=== PATIENT | male | born 1945 | race Caucasian/White ===

== ENCOUNTER → 2020-04-03 10:44 | Outpatient (BNVA) | payer MEDICARE, SELFPAY | PROVIDERS: Family Provider Nurse Practitioner Family; PCP Registered Nurse; Visit Provider Internal Medicine Cardiovascular Disease | DX: I10 Essential (primary) hypertension (principal) | CPT/HCPCS: 80061 ==

== ENCOUNTER → 2020-10-04 08:45 | Outpatient (BNVA) | payer MEDICARE, SELFPAY | PROVIDERS: Family Provider Nurse Practitioner Family; PCP Registered Nurse; Visit Provider Internal Medicine Cardiovascular Disease | DX: I10 Essential (primary) hypertension (principal); E78.2 Mixed hyperlipidemia | CPT/HCPCS: 80061; 80076; 82550 ==

== ENCOUNTER → 2021-04-03 13:47 | Outpatient (BNVA) | payer MEDICARE, SELFPAY | PROVIDERS: Family Provider Nurse Practitioner Family; PCP Registered Nurse; Visit Provider Internal Medicine Cardiovascular Disease | DX: E78.2 Mixed hyperlipidemia (principal); I25.10 Atherosclerotic heart disease of native coronary artery without angina pectoris; I10 Essential (primary) hypertension | CPT/HCPCS: 80061; 80076 ==

== ENCOUNTER → 2021-06-08 08:09 | Outpatient (BNVA) | payer MEDICARE, SELFPAY | PROVIDERS: Family Provider Nurse Practitioner Family; PCP Registered Nurse; Visit Provider Internal Medicine Cardiovascular Disease | DX: E78.2 Mixed hyperlipidemia (principal) | CPT/HCPCS: 80061 ==

== ENCOUNTER → 2022-10-08 13:40 | Outpatient (BNVA) | payer MEDICARE, SELFPAY | PROVIDERS: Family Provider Nurse Practitioner Family; PCP Registered Nurse; Visit Provider Internal Medicine Cardiovascular Disease | DX: I25.10 Atherosclerotic heart disease of native coronary artery without angina pectoris (principal); E78.2 Mixed hyperlipidemia; I10 Essential (primary) hypertension; F17.200 Nicotine dependence, unspecified, uncomplicated | CPT/HCPCS: 99214 ==

== ENCOUNTER → 2022-10-11 08:30 | Outpatient (BNVA) | payer MEDICARE, SELFPAY | PROVIDERS: Family Provider Nurse Practitioner Family; PCP Registered Nurse; Visit Provider Internal Medicine Cardiovascular Disease | DX: E78.5 Hyperlipidemia, unspecified (principal) | CPT/HCPCS: 80061; 80076 ==

== ENCOUNTER → 2023-04-14 13:27 | Outpatient (BNVA) | payer MEDICARE, SELFPAY | PROVIDERS: Family Provider Nurse Practitioner Family; PCP Registered Nurse; Visit Provider Internal Medicine Cardiovascular Disease | DX: I25.10 Atherosclerotic heart disease of native coronary artery without angina pectoris (principal); I10 Essential (primary) hypertension; E78.2 Mixed hyperlipidemia; I95.1 Orthostatic hypotension; F17.200 Nicotine dependence, unspecified, uncomplicated | CPT/HCPCS: 99214 ==

== ENCOUNTER → 2023-10-23 13:32 | Outpatient (BNVA) | payer MEDICARE, SELFPAY | PROVIDERS: Family Provider Nurse Practitioner Family; PCP Registered Nurse; Visit Provider Internal Medicine Cardiovascular Disease | DX: E78.2 Mixed hyperlipidemia (principal); I10 Essential (primary) hypertension; I25.10 Atherosclerotic heart disease of native coronary artery without angina pectoris; I95.1 Orthostatic hypotension; F17.200 Nicotine dependence, unspecified, uncomplicated | CPT/HCPCS: 99214 ==

== ENCOUNTER → 2023-11-07 08:19 | Outpatient (BNVA) | payer MEDICARE, SELFPAY | PROVIDERS: Family Provider Nurse Practitioner Family; PCP Registered Nurse; Visit Provider Internal Medicine Cardiovascular Disease | DX: E78.5 Hyperlipidemia, unspecified (principal); I10 Essential (primary) hypertension; Z79.899 Other long term (current) drug therapy | CPT/HCPCS: 80061 ==

== ENCOUNTER → 2024-04-22 10:48 | Outpatient (BNVA) | payer MEDICARE, SELFPAY | PROVIDERS: Family Provider Nurse Practitioner Family; PCP Registered Nurse; Visit Provider Nurse Practitioner Family | DX: I10 Essential (primary) hypertension (principal); I25.10 Atherosclerotic heart disease of native coronary artery without angina pectoris; Z72.0 Tobacco use | CPT/HCPCS: 99214 ==

== ENCOUNTER → 2024-08-02 12:39 | Outpatient (BNVA) | payer MEDICARE, SELFPAY | PROVIDERS: Family Provider Nurse Practitioner Family; PCP Registered Nurse; Referring Provider Registered Nurse; Visit Provider Nurse Practitioner Family | DX: L72.0 Epidermal cyst (principal); L82.1 Other seborrheic keratosis; L73.8 Other specified follicular disorders; D17.22 Benign lipomatous neoplasm of skin and subcutaneous tissue of left arm; L81.4 Other melanin hyperpigmentation; D48.5 Neoplasm of uncertain behavior of skin | CPT/HCPCS: 11102; 99203 ==

== ENCOUNTER → 2024-08-18 07:57 | Outpatient (BNVA) | payer MEDICARE, SELFPAY | PROVIDERS: Family Provider Nurse Practitioner Family; PCP Registered Nurse; Visit Provider Dermatology | DX: C44.311 Basal cell carcinoma of skin of nose (principal) | CPT/HCPCS: 99213 ==

== ENCOUNTER → 2024-10-25 09:07 | Outpatient (BNVA) | payer MEDICARE, SELFPAY | PROVIDERS: Family Provider Nurse Practitioner Family; PCP Registered Nurse; Visit Provider Registered Nurse | DX: I10 Essential (primary) hypertension (principal) | CPT/HCPCS: 80053; 80061; 85025 ==

== ENCOUNTER → 2024-11-24 13:52 | Outpatient (BNVA) | payer MEDICARE, SELFPAY | PROVIDERS: Family Provider Nurse Practitioner Family; PCP Registered Nurse; Visit Provider Internal Medicine Cardiovascular Disease | DX: I25.10 Atherosclerotic heart disease of native coronary artery without angina pectoris (principal); E78.2 Mixed hyperlipidemia; I10 Essential (primary) hypertension; I95.1 Orthostatic hypotension; F17.200 Nicotine dependence, unspecified, uncomplicated | CPT/HCPCS: 99214 ==

== ENCOUNTER 2025-01-13 20:23 | Inpatient (IN) | payer MEDICARE, SELFPAY ==
[2025-01-13 20:28] VITALS: BP 136/81; PULSE 114; RESP 28; TEMP 36.7; O2SAT 94; BMI 21.1
--- NOTE | 2025-01-13 20:33 | XRR_ITS ---
PROCEDURE INFORMATION: Exam: XR Chest Exam date and time: 01/13/2025 8:48 PM Age: 79 years old Clinical indication: Shortness of breath TECHNIQUE: Imaging protocol: Radiologic exam of the chest. Views: 1 view. COMPARISON: No relevant prior studies available. FINDINGS: Lungs: Nonspecific prominence of the pulmonary interstitium. No lobar consolidation. Bibasilar atelectasis. Pleural spaces: Small bilateral pleural effusions. No pneumothorax. Heart/Mediastinum: Unremarkable. No cardiomegaly. Bones/joints: Unremarkable. XR/XR chest 1V portable [id number] IMPRESSION: As above.
[2025-01-13 20:35] VITALS: PULSE 110; RESP 26; O2SAT 93
--- NOTE | 2025-01-13 20:48 | ED_ITS ---
HPI - SOB/Dyspnea 2 General: Chief Complaint: Shortness of Breath/Dyspnea Stated Complaint: SOB Time Seen by Provider: 01/13/25 20:29 History of Present Illness: HPI Narrative: 79-year-old man with history of coronary artery disease, hypertension, hyperlipidemia and COPD who presents emergency room by ambulance with shortness of breath. He had been seen in clinic a couple of days ago and felt like he might have pneumonia. He was started on steroids and also started on oxygen. He is not normally on oxygen prior to this. EMS reports when they arrived he was very dyspneic. His O2 sats were in the low 90s on 2 L nasal cannula. He received Solu-Medrol and breathing treatments on the way here. Related Data Home Medications ?Medication ?Instructions ?Recorded ?Confirmed aspirin 81 mg tablet,delayed 81 mg PO DAILY 03/29/20 0 01/13/25 release nitroglycerin 0.4 mg sublingual 0.4 mg sublingual Q5M PRN 03/29/20 01/13/25 tablet (Nitrostat) Previous Rx's ?Medication ?Instructions ?Recorded lisinopril 40 mg tablet 40 mg PO DAILY #90 tabs 03/05 ezetimibe 10 mg tablet (Zetia) 10 mg PO DAILY #90 tabs 03/04/24 rosuvastatin 10 mg tablet 10 mg PO DAILY #90 tabs 02/11 01/03 clopidogrel 75 mg tablet 75 mg PO DAILY #90 tabs 02/03 albuterol sulfate 90 mcg/actuation 1 inh inhalation QI D PRN 08/25/24 aerosol inhaler bronchospasm 30 days #8.5 gr ams metoprolol tartrate 25 mg tablet 25 mg PO BID #180 tab s 09/14/24 fluticasone propionate 230 2 puff inhalation BID #12 g nova 01/13/25 mcg-salmeterol 21 mcg/actuation HFA inhaler (Advair HFA) oxygen #1 ea 01/13/25 Allergies Allergy/AdvReac Type Severity Reaction Status Date / Time rosuvastatin AdvReac Severe severe Verified 01/13/25 20:29 joint pain Review of Systems 2 Narrative: Constitutional symptoms: Negative except as documented in HPI. Skin symptoms: Negative except as documented in HPI. Eye symptoms: Negative except as documented in HPI. ENMT symptoms: Negative except as documented in HPI. Respiratory symptoms: Negative except as documented in HPI. Cardiovascular symptoms: Negative except as documented in HPI. Gastrointestinal symptoms: Negative except as documented in HPI. Genitourinary symptoms: Negative except as documented in HPI. Musculoskeletal symptoms: Negative except as documented in HPI. Neurologic symptoms: Negative except as documented in HPI. Psychiatric symptoms: Negative except as documented in HPI. Endocrine symptoms: Negative except as documented in HPI. PFSH ED 2 PFSH: Medical History (Updated 01/13/25 @ 23:58 by Sveta Obrien MD) COPD (chronic obstructive pulmonary disease) Arteriosclerotic heart disease (ASHD) Hypertension Hyperlipemia Surgical History Hx of inguinal hernia surgery Family History Father Cancer Denies family history of Diabetes CAD (coronary artery disease) Clotting disorder Dementia Hyperlipidemia Chronic kidney disease (CKD) Suicide Anesthesia complication Bleeding disorder Lung disease Hypertension Stroke Social History Smoking and tobacco/nicotine status: current some day tobacco/nicotine user Alcohol intake: never Substance/Drug Use: never Physical Exam 2 Narrative: EXAM NARRATIVE: General: Alert, moderate distress. Skin: Warm, dry. Head: Normocephalic, atraumatic. Neck: Supple, trachea midline. Eye: Extraocular movements are intact. Ears, nose, mouth and throat: Oral mucosa moist. Cardiovascular: Regular rate and rhythm, Normal peripheral perfusion. Respiratory: coarse, scattered wheeze, moderate increased wob. tachypnea, prolonged expiratory phase. breath sounds are equal, Symmetrical chest wall expansion. Gastrointestinal: Soft, Nontender, Non distended, Normal bowel sounds. Musculoskeletal: Normal ROM, no deformity. Neurological: Alert and oriented, and situation, No focal neurological deficit observed. Psychiatric: Cooperative, appropriate mood & affect. Course 2 Vital Signs: Vital signs: Vital Signs Temperature 98.1 F 01/13/25 20:28 Pulse Rate 103 H 01/13/25 23:39 Respiratory Rate 26 H 01/13/25 20:35 Blood Pressure 108/75 01/13/25 23:39 Pulse Oximetry 91 01/13/25 23:39 Oxygen Delivery Me thod Nasal Cannula 01/13/25 20:35 Oxygen Flow Rate 2 01/13/25 20:35 MDM - SOB/Dyspnea Medical Decision Making Differential diagnosis for patient with shortness of breath includes but is not limited to and based on the above HPI, review of systems and physical exam: Pneumonia. Bronchitis. Asthma or COPD with acute exacerbation. Acute coronary syndrome / [place]. Pulmonary embolism. Anxiety. Congestive heart failure. Viral infections including influenza and Covid-19. Atrial fibrillation. Anxiety. Pleural effusion. Pneumothorax. Orders placed to evaluate differential diagnosis based on the above differential, HPI and physical exam AB.4 with an O2 sat of 89% on 2 L nasal cannula. Patient does have hypoxemia. No CO2 retention. Chest x-ray:Nonspecific prominence of pulmonary interstitium. No lobar consolidations. Bibasilar atelectasis. This was reviewed and interpreted by myself the emergency room physician. I also reviewed the radiology report. Lab Review: Laboratory results were reviewed and interpreted by myself the emergency room physician. Mild leukocytosis. No anemia. No renal failure. Patient is positive for influenza. His D-dimer was positive so CTA was done. CTA of the chest with PE protocol: Patchy groundglass opacities in the lower lobes also in the right middle lobe. Emphysematous changes. This was reviewed and interpreted by myself the emergency room physician. I also reviewed the radiology report. I reviewed the patient's medical record. Reexamination: Patient continues to have quite a bit of wheeze and increased work of breathing. He is a bit tachypneic as well. Lungs are still very tight after multiple updrafts and Solu-Medrol. He had not required oxygen prior to this illness. No diagnosis of COPD until recently. This appears to be confirmed with his CT scan today. Consultation: I spoke with Dr. Giang who agrees to admission to the hospital. Assessment and plan: COPD with acute exacerbation Influenza A Hypoxemia ?Patient has received IV Solu-Medrol, 3 updrafts, and is requiring oxygen. -I discussed the patient with the hospitalist on-call who is admitting the patient. - Discussed findings and plan with patient. Answered any questions. - All laboratory values were reviewed and interpreted personally by myself, the ER physician - All imaging was reviewed and interpreted personally by myself, the ER physician. - Evaluation and treatment of this problem were appropriate in the emergency setting Lab Data 01/13/25 20:45 01/13/25 20:45 Labs/Radiology: Radiology Impressions Chest X-Ray 01/13/25 20:33 IMPRESSION: As above. Chest CTA 01/13/25 21:42 IMPRESSION: 1. No evidence of pulmonary embolism. 2. Patchy ground-glass opacities and areas of tree-in-bud nodularity in the lower lobes likely represent an atypical infectious/inflammatory process. Consider imaging follow-up after clinical treatment to document resolution. 3. Ground-glass and consolidative opacities in the right middle lobe may also represent infection. Attention on follow-up recommended. 4. Moderate emphysema. COMMENTS: The presence of pulmonary emphysema on CT is an independent risk factor for lung cancer. In the absence of a history or active diagnosis of lung cancer, it is recommended that this patient with emphysema be evaluated for enrollment in a low dose CT lung cancer screening program. Laboratory Results WBC 11.62 10^3/uL (3.29-11.43) H 01/13/25 20:45 RBC 5.20 10^6/uL (3.85-5.65) 01/13/25 20:45 Hgb 15.90 g/dL (11.27-16.99) 01/13/25 20:45 Hct 47.6 % (37-53) 01/13/25 20:45 MCV 91.5 fl (82-101) 01/13/25 20:45 MCH 30.6 pg (27-33) 01/13/25 20:45 MCHC 33.4 g/dL (30-55) 01/13/25 20:45 RDW 12.4 % (12.1-15.1) 01/13/25 20:45 Plt Count 141 10^3/cmm (157-399) L 01/13/25 20:45 MPV 10.1 fL (7.4-10.4) 01/13/25 20:45 Neut % (Auto) 81.6 % 01/13/25 20:45 Lymph % (Auto) 12.0 % 01/13/25 20:45 [facility] % (Auto) 5.9 % 01/13/25 20:45 Eos % (Auto) 0.1 % 01/13/25 20:45 Baso % (Auto) 0.1 % 01/13/25 20:45 Neut # (Auto) 9.49 10^3/uL (1.8-7.7) H 01/13/25 20:45 Lymph # (Auto) 1.4 10^3/uL (0.8-4.8) 01/13/25 20:45 [facility] # (Auto) 0.7 10^3/uL (0.2-0.9) 01/13/25 20:45 Eos # (Auto) 0.0 10^3/uL (0.0-0.8) 01/13/25 20:45 Baso # (Auto) 0.0 10^3/uL (0.0-0.1) 01/13/25 20:45 Nucleated RBC % (auto) 0 % 01/13/25 20:45 Nucleated RBCs # 0.0 /100WBC 01/13/25 20:45 D-Dimer 1.10 ug/mLFEU (0-0.59) H 01/13/25 20:45 Specimen Type Arterial 01/13/25 20:41 Sample Site Radial, right 01/13/25 20:41 ABG pH 7.46 (7.35-7.45) H 01/13/25 20:41 ABG pCO2 38.0 mmHg (35-45) 01/13/25 20:41 ABG pO2 58.6 mmHg (80.0-100.0) L 01/13/25 20:41 ABG HCO3 27.0 mmol/L (22-26) H 01/13/25 20:41 ABG O2 Saturation 92.3 01/13/25 20:41 ABG Base Excess 3.2 mmol/L (-2.0-2.0) H 01/13/25 20:41 Dimitri Test Pos 01/13/25 20:41 A-a O2 Gradient 5.7 mmHg (5-10) 01/13/25 20:41 Hematocrit 50.4 % (42-52) 01/13/25 20:41 Hgb O2 Saturation 89.8 % (95-100) L 01/13/25 20:41 Carboxyhemoglobin 1.9 %THgb (0.4-20.1) 01/13/25 20: Methemoglobin 0.8 % (0.4-1.5) 01/13/25 20: Total Hemoglobin 16.4 g/dL (14-18) 01/13/25 20:41 Sodium 134.0 mmol/L (131-143) 01/13/25 20:41 Potassium 3.8 mmol/L (3.5-5.0) 01/13/25 20:41 Glucose 142.0 mg/dL (70-115) H 01/13/25 20:41 Ionized Calcium 1.1 mmol/L (1.1-1.4) 01/13/25 20:41 O2 Delivery Device Nc 01/13/25 20:41 O2 Liters/Min 2.0 % 01/13/25 20:41 Machinery Erector ID gerca 01/13/25 20:41 Sodium 136 mmol/L (136-145) 01/13/25 20:45 Potassium 4.4 mmol/L (3.5-5.1) 01/13/25 20:45 Chloride 96 mmol/L (98-107) L 01/13/25 20:45 Carbon Dioxide 28 mmol/L (22-29) 01/13/25 20:45 Anion Gap 16.4 (5-19) 01/13/25 20:45 BUN 12 mg/dL (8-23) 01/13/25 20:45 Creatinine 0.9 mg/dL (0.7-1.2) 01/13/25 20:45 GFR Calculation Not Reportable 01/13/25 20:45 Glucose 137 mg/dL (65-115) H 01/13/25 20:45 Calculated Osmolality 284 mOsm/kg (285-295) L 01/13/25 20:45 Lactic Acid 2.0 mmol/L (0.5-2.2) 01/13/25 20:45 Calcium 8.6 mg/dL (8.5-10.5) 01/13/25 20:45 Total Bilirubin 1.2 mg/dL (0.15-1.2) 01/13/25 20:45 AST 22 U/L (0-40) 01/13/25 20:45 ALT 27 U/L (0-41) 01/13/25 20:45 Alkaline Phosphatase 78 U/L (40-130) 01/13/25 20:45 Troponin T Baseline 10 ng/L (0-15) 01/13/25 20:45 Troponin T 120 Minute 11.48 ng/L (0-15) 01/13/25 22:44 Delta Troponin T 1.48 ABS# (0-10) 01/13/25 22:44 C-Reactive Protein 25.8 mg/L (0.0-4.9) H 01/13/25 20:45 NT-Pro-B Natriuret Pep 230 pg/mL (0-450) 01/13/25 20:45 Total Protein 6.9 g/dL (6.6-8.7) 01/13/25 20:45 Albumin 4.0 g/dL (3.5-5.2) 01/13/25 20:45 Globulin 2.9 g/dL (1.3-4.6) 01/13/25 20:45 Urine Color Yellow (Yellow) 01/13/25 21:30 Urine Appearance Clear (CLEAR) 01/13/25 21:30 Urine pH 8 (5-7) A 01/13/25 21:30 Ur Specific [place] 1.010 (1.005-1.030) 01/13/25 21:30 Urine Protein Neg (Negative) 01/13/25 21:30 Urine Glucose (UA) Norm (Normal) 01/13/25 21:30 Urine Ketones Negative (Negative) 01/13/25 21:30 Urine Blood 2+ (Negative) H 01/13/25 21:30 Urine Nitrate Negative (Negative) 01/13/25 21: Urine Bilirubin Neg (Negative) 01/13/25 21:30 Urine Urobilinogen Norm mg/dL (Negative) 01/13/25 21:30 Ur Leukocyte Esterase Negative (Negative) 01/13/25 21: Urine RBC 6-10 /hpf (0-2) 01/13/25 21:30 Urine WBC 0-5 /hpf (0-5) 01/13/25 21:30 Ur Squamous Epith Cells 0-5 /hpf (0-5) 01/13/25 21:30 Amorphous Sediment Not Reportable 01/13/25 21:30 Urine Bacteria None seen /hpf (NONE) 01/13/25 21:30 Hyaline Casts 0-4 /lpf H 01/13/25 21:30 Influenza A (PCR) Positive (Negative) 01/13/25 20:45 Influenza Type B (PCR) Negative (Negative) 01/13/25 20:45 RSV (PCR) Negative (Negative) 01/13/25 20:45 SARS-CoV-2 (PCR) Negative (Negative) 01/13/25 20:45 All radiology interpretation(s) finalized by discharge Discharge Plan Discharge Patient Disposition: Admitted As Inpatient Clinical Impression: COPD exacerbation, Influenza A, Hypoxemia Condition: Stable Coding Level of Care Code ED Sales Performance Analyst for Henrique Puente
[2025-01-13 20:53] LABS: ABG PH Result 7.46 (7.35-7.45); Alveolar-Arterial Oxygen Gradi 5.7 mmHg (5-10); Arterial Blood Gas Hematocrit 50.4 % (42-52); Base Excess ABG 3.2 mmol/L (-2.0-2.0); Blood Gas Allen Test Pos; Blood Gas Operator Identificat gerca; Blood Gas Sample Site Radial, right; Blood Gas Sample Type Arterial; Carboxyhemoglobin 1.9 %THgb (0.4-20.1); HGB O2 Sat 89.8 % (95-100); Ionized Calcium Level - ABG 1.1 mmol/L (1.1-1.4); Methemoglobin 0.8 % (0.4-1.5); Oxygen Device NC; Oxygen Saturation ABG 92.3; PO2 ABG 58.6 mmHg (80.0-100.0); Potassium Level - ABG 3.8 mmol/L (3.5-5.0); Total Hemoglobin 16.4 g/dL (14-18)
[2025-01-13] MEDS: ipratropium-albuterol 3 mL Neb INHALATION (20:57)
[2025-01-13] MEDS: albuterol 2.5 mg/3 mL Neb INHALATION (20:57)
[2025-01-13 21:12] LABS: Troponin(5th) Baseline 10 ng/L (0-15)
[2025-01-13 21:14] LABS: Basophils % 0.1 %; Eosinophils % 0.1 %; Hematocrit 47.6 % (37-53); Lymphocytes # 1.4 10^3/uL (0.8-4.8); Mean Corpuscular HGB Conc 33.4 g/dL (30-55); Mean Corpuscular Hemoglobin 30.6 pg (27-33); Mean Corpuscular Volume 91.5 fl (82-101); Mean Platelet Volume 10.1 fL (7.4-10.4); Monocytes # 0.7 10^3/uL (0.2-0.9); Monocytes % 5.9 %; Neutrophils # 9.49 10^3/uL (1.8-7.7); Neutrophils % 81.6 %; Nucleated Red Blood Cells % 0 %; Platelet Count 141 10^3/cmm (157-399); Red Cell Distribution Width 12.4 % (12.1-15.1); White Blood Count 11.62 10^3/uL (3.29-11.43)
[2025-01-13 21:21] LABS: Alanine Aminotransferase 27 U/L (0-41); Alkaline Phosphatase 78 U/L (40-130); Aspartate Amino Transferase 22 U/L (0-40); Blood Urea Nitrogen 12 mg/dL (8-23); C Reactive Protein 25.8 mg/L (0.0-4.9); Calcium 8.6 mg/dL (8.5-10.5); Carbon Dioxide 28 mmol/L (22-29); Chloride 96 mmol/L (98-107); Creatinine Clr Calc Pharmacy 68.5137; Globulin 2.9 g/dL (1.3-4.6); Glucose 137 mg/dL (65-115); NT Pro B Type Natriuretic Pept 230 pg/mL (0-450); Osmolality Calculated 284 mOsm/kg (285-295); Sodium 136 mmol/L (136-145); Total Bilirubin 1.2 mg/dL (0.15-1.2); Total Protein 6.9 g/dL (6.6-8.7)
[2025-01-13 21:24] LABS: Anion Gap 16.4 (5-19); Potassium 4.4 mmol/L (3.5-5.1)
[2025-01-13 21:29] LABS: Influenza A POSITIVE (Negative); Influenza B NEGATIVE (Negative); Respiratory Syncytial Virus Ce NEGATIVE (Negative); SARS-CoV-2 PCR NEGATIVE (Negative)
--- NOTE | 2025-01-13 21:42 | CTR_ITS ---
PROCEDURE INFORMATION: Exam: CTA Chest With Contrast Exam date and time: 01/13/2025 9:56 PM Age: 79 years old Clinical indication: Chest pressure and chest wall pain; Additional info: Chest pain, elevated ddimer TECHNIQUE: Imaging protocol: Computed tomographic angiography of the chest with contrast. Exam focused on the arteries. 3D rendering (Not supervised by radiologist): MIP and/or 3D reconstructed images were created by the technologist. Radiation optimization: All CT scans at this facility use at least one of these dose optimization techniques: automated exposure control; mA and/or kV adjustment per patient size (includes targeted exams where dose is matched to clinical indication); or iterative reconstruction. Contrast material: OMNI 350; Contrast volume: 100 ml; Contrast route: INTRAVENOUS (IV); COMPARISON: CR (CHEST, ) 01/13/2025 8:48 PM RADIATION DOSE METRICS: Total DLP (mGy-cm): 268.73 FINDINGS: Pulmonary arteries: Normal. No pulmonary emboli. Aorta: [id number] atherosclerotic aortic calcifications. The thoracic aorta is nonaneurysmal. Lungs: Moderate emphysematous changes throughout the lungs. Saber sheath morphology trachea is compatible with chronic obstructive lung disease. Central bronchial wall thickening with areas of inspissated secretions. Ill-defined ground-glass and reticular opacities along with a small area of consolidation in the right middle lobe. Patchy ground-glass opacities and tree-in-bud nodularity in bilateral lower lobes. Calcified left upper lobe granuloma. Pleural spaces: Unremarkable. No pneumothorax. No pleural effusion. Heart: Unremarkable. No cardiomegaly. No pericardial effusion. Lymph nodes: Calcified left hilar lymph nodes from prior granulomatous disease. Spleen: Calcified splenic granulomas. The spleen is normal in size. Bones/joints: Multilevel flowing anterior osteophytes compatible with diffuse idiopathic skeletal hyperostosis (DISH). Multilevel degenerative changes of the imaged spine. Soft tissues: Unremarkable. CT/CT angio chest PE protcl [id number] IMPRESSION: 1. No evidence of pulmonary embolism. 2. Patchy ground-glass opacities and areas of tree-in-bud nodularity in the lower lobes likely represent an atypical infectious/inflammatory process. Consider imaging follow-up after clinical treatment to document resolution. 3. Ground-glass and consolidative opacities in the right middle lobe may also represent infection. Attention on follow-up recommended. 4. Moderate emphysema. COMMENTS: The presence of pulmonary emphysema on CT is an independent risk factor for lung cancer. In the absence of a history or active diagnosis of lung cancer, it is recommended that this patient with emphysema be evaluated for enrollment in a low dose CT lung cancer screening program.
[2025-01-13 21:43] LABS: Bacteria Urine None Seen /hpf; Hyaline Casts Urine 0-4 /lpf; Squamous Epithelial Cell Urine 0-5 /hpf (0-5); WBC Urine 0-5 /hpf (0-5)
[2025-01-13 21:44] LABS: Bilirubin Urine Neg (Negative); Blood Urine 2+ (Negative); Glucose Urine UA Norm (Normal); Ketones Urine Negative (Negative); Leukocyte Esterase Urine Negative (Negative); Nitrate Urine Negative (Negative); Protein Urine Neg (Negative); Urine Appearance Clear (CLEAR); Urine Color Yellow (Yellow); Urobilinogen Urine Norm (Negative); pH Urine 8 (5-7)
[2025-01-13 22:00] VITALS: BP 117/77; PULSE 116; O2SAT 90
[2025-01-13] MEDS: iohexol 350 mg/mL 500 mL Btl (per mL) IV (22:08)
--- NOTE | 2025-01-13 22:33 | ECG_ITS ---
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1945 Requested By: Sveta Cade Order Number: [id number] Reading MD: ROBERTA DELGADO Measurements Intervals [place] Rate: 105 P: 92 [place]: 153 QRS: 110 QRSD: 116 T: 81 QT: 334 QTc: 443 Interpretive Statements SINUS TACHYCARDIA INDETERMINATE AXIS RIGHT BUNDLE BRANCH BLOCK [120+ ms QRS DURATION, UPRIGHT V1, 40+ ms S IN I/aVL/V4/V5/V6] ST DEVIATION AND MARKED T-WAVE ABNORMALITY, CONSIDER ANTERIOR ISCHEMIA [-0.5+ mV T-WAVE IN V3/V4] Compared to ECG 03/28/2018 20:11:28 Indeterminate axis now present Right bundle-branch block now present Electronically Signed On 01-16-2025 22:03:45 CDT by ROBERTA DELGADO [email or web address]
[2025-01-13 23:08] LABS: Troponin 5 2HR 11.48 ng/L (0-15); Troponin 5 2HR Delta 1.48 ABS# (0-10)
[2025-01-13 23:39] VITALS: BP 108/75; PULSE 103; O2SAT 91
--- NOTE | 2025-01-13 23:57 | P.HP_ITS ---
Providers/Chief Complaint 2 Admitting Physician: Shazia Giang Primary Care Provider: DIAN Chase Chief Complaint: SOB History of Present Illness Clinical Academic Allergist: Dr. Reyna Facial Plastic Surgery: Temo Spencer MD Mrs. Kirti Santos - [phone] Mattie Holland - [phone] Dick Dos Santos is a 79 year old male w/ CAD, [place] s/p 2 stents in 2018, HTN, HLD, basal cell carcinoma of the nose s/p reconstructive surgery w/ flap to the ED on with complaints of progressive shortness of breath, despite getting a 2L O2 tank earlier in the day. According to the patient's , he had his last follow-up for his reconstructive surgery on , and about a week after that, he he developed cough, rhinorrhea, and dyspnea. He went to a clinic around 12/25 to 2024, where he was given a Zpack. Last week around mid week, he stated that he could not catch his breath. Additionally, he had a productive cough of thick white sputum. He subsequently went to [place] [facility]'s ED on Friday01/10/2024, where he was prescribed Amoxicillin w/ steroids. He was given breathing treatments, then steroids and abx and discharged to follow-up with his PCP if he did not improve. He followed up with his PCP on 01/13/2025 when he was given the oxygen tank 2L and diagnosed with COPD. According to patient's , while at home, the patient's breathing worsened, so she called the EMS. EMS gave him Solumedrol and a breathing treatment which helped. He endorses fever of 99F on forehead, chills, wheezing, and urinary incontinence, which appears to occur with Valsalva maneuver. He complains of sores on his mouth. He denies CP, palpitations, GI symptoms. The patient at baseline, cannot breathe well through the left nostril, due to the facial reconstructive surgery that he had, and the patient's tells me that they were informed that the patient would not be able to breathe well through the left nostril for about a year, because of the the time that it would take for the swelling in his left nostril to decrease post-surgery. In the ED he was tachypneic and tachycardic. He had a leukocytosis of 11.62, with predominant neutrophil. An ABG was done that was 7.46/38/58 on 2L NC. A CXR was done that showed nonspecific prominence of the pulmonary interstitium, but no lobar consolidation, so CTA chest with PE protocol was done. The CTA chest showed no evidence of a PE, but it did show moderate emphysematous changes throughout the lungs, findings concerning for bilateral lower lobe patchy groundglass opacities and tree-in-bud nodularity, as well as right middle lobe pneumonia. Review of Systems 2 Const: Reports: fever(s), chills, change in appetite (poor), fatigue and malaise Eyes: Denies: change in vision or blurry vision ENMT: Reports: nasal obstruction (L. nose due to nasal reconstructive surgery. ) and other; Denies: ear or mastoid pain, ear discharge, nasal discharge or nasal congestion Card: Denies: chest pain, palpitations, lightheadedness or syncope Resp: Reports: dyspnea, productive cough and wheezing GI: Denies: abdominal pain, nausea, vomiting, diarrhea, constipation, hematochezia or melena : Reports: urinary incontinence (has occurred twice this week); Denies: dysuria, urinary frequency or urinary urgency Musc: Reports: joint pain (back pain ) and other (no myalgias) Skin/Breast: Denies: rash or new lesions Neuro: Denies: headache(s) or dizziness Psych: Denies: anxiety, depression, auditory hallucinations, suicidal ideation or homicidal ideation Endo: Denies: cold intolerance or heat intolerance Clay/Lymph: Reports: easy bruising; Denies: easy bleeding Medications/Allergies Home Medications ?Medication ?Instructions ?Recorded ?Confirmed ?Last Taken ?Type aspirin 81 mg tablet,delayed 81 mg PO DAILY 03/29/20 0 01/14/25 01/13/25 08:00 History release nitroglycerin 0.4 mg sublingual 0.4 mg sublingual Q5M PRN Chest 03/29/20 01/14/25 Unknown History tablet (Nitrostat) Pain lisinopril 40 mg tablet 40 mg PO DAILY #90 tabs 03/0 03/0501/14/25 01/13/25 08:00 Rx ezetimibe 10 mg tablet (Zetia) 10 mg PO DAILY #90 tabs 03/04/24 01/14/25 01/13/25 08:00 Rx clopidogrel 75 mg tablet 75 mg PO DAILY #90 tabs 02/0301/14/25 01/13/25 08:00 Rx albuterol sulfate 90 mcg/actuation 1 inh inhalation QI D PRN 08/25/24 01/14/25 01/13/25 08:00 Rx aerosol inhaler bronchospasm 30 days #8.5 gr ams metoprolol tartrate 25 mg tablet 25 mg PO BID #180 tab s 09/14/24 01/14/25 01/13/25 08:00 Rx fluticasone propionate 230 2 puff inhalation BID #12 g nova 01/13/25 01/14/25 01/13/25 08:00 Rx mcg-salmeterol 21 mcg/actuation HFA inhaler (Advair HFA) oxygen #1 ea 01/13/25 01/14/25 0401/04 08:00 Rx rosuvastatin 10 mg tablet 10 mg PO BEDTIME 01/14/2501/12/25 20:00 History Allergies Allergy/AdvReac Type Severity Reaction Status Date / Time No Known Allergies Allergy Verified 01/14/25 01:52 PFSH Acute 2 PFSH: Medical History (Updated 01/14/25 @ 02:49 by Shazia Giang MD) COPD (chronic obstructive pulmonary disease) Arteriosclerotic heart disease (ASHD) Hypertension Hyperlipemia Surgical History Hx of inguinal hernia surgery Family History Father Cancer Denies family history of Diabetes CAD (coronary artery disease) Clotting disorder Dementia Hyperlipidemia Chronic kidney disease (CKD) Suicide Anesthesia complication Bleeding disorder Lung disease Hypertension Stroke Social History Smoking and tobacco/nicotine status: current some day tobacco/nicotine user cigarettes Packs smoked per day: 0.75 [ Other cigarette details: 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 ] and pipe Alcohol intake: never Substance/Drug Use: never Vitals/I&O/Wt Last Vital Signs Temp 98.1 F 01/13/25 20:28 Pulse 103 H 01/13/25 23:39 Resp 26 H 01/13/25 20:35 BP 108/75 01/13/25 23:39 Pulse Ox 91 01/13/25 23:39 O2 Del Method Nasal Cannula 01/13/25 20:35 O2 Flow Rate 2 01/13/25 20:35 01/13/25 01/13/25 01/14/25 14:59 22:59 06:59 Intake Total 0 / 0 Balance 0 / 0 Weight last 48 hrs Weight 66.678 kg Physical Exam 2 Narrative: Constitutional: GENERAL APPEARANCE: cooperative, uncomfortable; not combative, not disheveled, ill appearing HENT: HEAD & SCALP: normocephalic and atraumatic; NOSE: external nose not normal EXTERNAL EAR: no external ears normal MOUTH: Normal oral and palatal mucosa present THROAT: posterior oropharynx normal Eye: PERRL, EOMI, normal conjunctiva b/l Neck: normal visual inspection, trachea midline, No anterior neck swelling, No tracheal deviation, no submandibular swelling, Thyroid normal , cervical ROM normal Lymph: no cervical, supraclavicular LAD Resp: positive use of accessory muscles, b/l expiratory wheezes, diminished breath sounds in the R. lower lung lobe and throughout the L. lower lung lobe, Cardio: RRR, no m/r/g, or clicks. 2+ radial and DP pulses. GI: normoactive bowel sounds, non-tender, non-distended, no guarding, no rigidity, no rebound tenderness, no hepatosplenomegaly. : (-) Hays in place draining urine Back/Pelvis: Deferred Extremity: No clubbing, No cyanosis and No edema Neuro: AO to person, place and time. CN normal except as noted. 5/5 motor strength present throughout. Normal motor muscle tone present throughout. No tremor noted. No motor abnormalities present. Psych: APPEARANCE: Yes grossly normal ATTITUDE: Yes calm and Yes engaged ACTIVITY/MOTOR BEHAVIOR: Yes appropriate eye contact SPEECH: Yes normal speech MOOD & AFFECT: Yes euthymic mood THOUGHT PROCESS: ___ THOUGHT CONTENT: ___ ATTENTION/CONCENTRATION: Yes attention grossly intact MEMORY/COGNITION: Yes memory grossly intact Data 01/13/25 20:45 01/13/25 20:45 Micro: Microbiology 01/13/25 21:09 Blood Culture - Preliminary Blood SPECIMEN COLLECTED 01/13/25 21:05 Blood Culture - Preliminary Blood SPECIMEN COLLECTED A&P Assessment and plan (1) Influenza A: (2) COPD exacerbation: (3) Severe sepsis: (4) Acute hypoxic respiratory failure: (5) Lactic acidosis: Plan Dick Dos Santos is a 79 year old male w/ CAD, [place] s/p 2 stents in 2018, HTN, HLD, basal cell carcinoma of the nose s/p reconstructive surgery w/ flap to the ED on with complaints of progressive shortness of breath, despite getting a 2L O2 tank earlier in the day. According to the patient's , he had his last follow-up for his reconstructive surgery on , and about a week after that, he he developed cough, rhinorrhea, and dyspnea. He went to a clinic around 12/25 to 2024, where he was given a Zpack. Last week around mid week, he stated that he could not catch his breath. Additionally, he had a productive cough of thick white sputum. He subsequently went to [place]'s ED on Friday01/10/2024, where he was prescribed Amoxicillin w/ steroids. He was given breathing treatments, then steroids and abx and discharged to follow-up with his PCP if he did not improve. He followed up with his PCP on 01/13/2025 when he was given the oxygen tank 2L and diagnosed with COPD. According to patient's , while at home, the patient's breathing worsened, so she called the EMS. EMS gave him Solumedrol and a breathing treatment which helped. He endorses fever of 99F on forehead, chills, wheezing, and urinary incontinence, which appears to occur with Valsalva maneuver. He complains of sores on his mouth. He denies CP, palpitations, GI symptoms. The patient at baseline, cannot breathe well through the left nostril, due to the facial reconstructive surgery that he had, and the patient's tells me that they were informed that the patient would not be able to breathe well through the left nostril for about a year, because of the the time that it would take for the swelling in his left nostril to decrease post-surgery. In the ED he was tachypneic and tachycardic. He had a leukocytosis of 11.62, with predominant neutrophil. An ABG was done that was 7.46/38/58 on 2L NC. A CXR was done that showed nonspecific prominence of the pulmonary interstitium, but no lobar consolidation, so CTA chest with PE protocol was done. The CTA chest showed no evidence of a PE, but it did show moderate emphysematous changes throughout the lungs, findings concerning for bilateral lower lobe patchy ground glass opacities and tree-in-bud nodularity, as well as right middle lobe pneumonia. #Severe Sepsis: Due to Influenza A & bacterial pneumonia #Influenza A pneumonia w/ possible superimposed bacterial pneumonia #b/l gram negative pneumonia - F/u BCx, Sputum Cx - Give 2L IVF total and start continuous fluids. - Continue Cefepime and Azithromycin #Acute COPD Exacerbation #Tobacco use d/o - Noted on CTA chest. -Ordered DuoNebs, PPI. Continue antibiotics listed above. -Counseled the patient on quitting smoking. Offered nicotine patch which she declined at this time. #Acute Hypoxic respiratory failure: Continue 2L O2 NC. Wean as tolerated. #Lactic acidosis: Trend. #CAD #HTN #HLD -Continued aspirin. Held all other medications. DVT ppx: Lovenox GI ppx: Protonix CODE STATUS: Per extensive discussion with the patient and his family members, primarily his , with the daughter who was in the room, the patient is FULL CODE PDMP PDMP Reviewed: Not Reviewed Attestations 2 Medical Necessity Statement*: The patient is to be hospitalized for greater than 2 midnights for his severe sepsis, influenza A pneumonia with superimposed bacterial pneumonia, acute COPD exacerbation, and acute hypoxic respiratory failure. Time Spent in Patient Care: >75mins was spent on interviewing the patient with his , physical exam, lab/image review and interpretation, plan formulation, coordination of care, and communication of plan to the patient and his family. Coding Level of Care Code 92404 High Time for a total of 75 minutes, includes reviewing past or interval history, examining/interviewing patient, placing orders, counseling patient/family/other support, updating patient/family/other support, discussing plan of care with staff, communicating with other healthcare providers, documenting encounter and coordinating care Diagnoses Influenza A J10.1 COPD exacerbation J44.1 Severe sepsis A41.9; R65.20 Acute hypoxic respiratory failure J96.01 Lactic acidosis E87.20
[2025-01-14] VITALS (19 sets, daily range): BP systolic 94–144; BP diastolic 60–88; PULSE 64–100; RESP 16–20; TEMP 35.9–36.6; O2SAT 92–97; BMI 20.8
--- NOTE | 2025-01-14 00:40 | PC.NURSE ---
Report called to Wendy CONTI on Med-Surg. All questions and concerns were addressed at time of report.
[2025-01-14] MEDS: sodium chloride 0.9% 1,000 ML 999 ML IV ×2 (00:52→03:44)
[2025-01-14] MEDS: cefepime 2,000 mg SDV 2000 MG IVP ×3 (01:00→21:25)
[2025-01-14] MEDS: AZITHROMYCIN ADD-Vantage 500 MG in 0.9% NaCl ADD-Vantage 250 ML 250 MG IV (02:23)
--- NOTE | 2025-01-14 02:33 | ECG_ITS ---
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: : 1945 Requested By: Sveta Cade Order Number: [id number] Reading MD: ROBERTA DELGADO Measurements Intervals Mcdade Rate: 83 P: 92 OR: 148 QRS: -61 QRSD: 125 T: 70 QT: 386 QTc: 455 Interpretive Statements SINUS RHYTHM RIGHT BUNDLE BRANCH BLOCK [120+ ms QRS DURATION, UPRIGHT V1, 40+ ms S IN I/aVL/V4/V5/V6] LEFT ANTERIOR FASCICULAR BLOCK [QRS AXIS <= -45, QR IN I, RS IN II] Compared to ECG 01/13/2025 22:25:45 Left anterior fascicular block now present Sinus tachycardia no longer present Indeterminate axis no longer present T-wave abnormality no longer present Possible ischemia no longer present Electronically Signed On 01-16-2025 22:03:55 CDT by ROBERTA DELGADO [email or web address]
[2025-01-14 02:52] LABS: Basophils % 0.1 %; Hematocrit 44.8 % (37-53); Lymphocytes # 0.5 10^3/uL (0.8-4.8); Lymphocytes % 3.6 %; Mean Corpuscular HGB Conc 32.6 g/dL (30-55); Mean Corpuscular Hemoglobin 30.3 pg (27-33); Mean Corpuscular Volume 92.9 fl (82-101); Mean Platelet Volume 9.8 fL (7.4-10.4); Monocytes # 0.3 10^3/uL (0.2-0.9); Neutrophils # 11.88 10^3/uL (1.8-7.7); Nucleated Red Blood Cells % 0 %; Platelet Count 140 10^3/cmm (157-399); Red Blood Count 4.82 10^6/uL (3.85-5.65); Red Cell Distribution Width 12.6 % (12.1-15.1); White Blood Count 12.64 10^3/uL (3.29-11.43)
[2025-01-14] MEDS: ipratropium-albuterol 3 mL Neb INHALATION ×5 (03:06→19:23)
[2025-01-14 03:07] LABS: Troponin 5 6HR 10.91 ng/L (0-15); Troponin 5 6HR Delta 0.91 ng/L (0-12)
[2025-01-14 03:20] LABS: Alanine Aminotransferase 23 U/L (0-41); Albumin Level 3.7 g/dL (3.5-5.2); Alkaline Phosphatase 70 U/L (40-130); Aspartate Amino Transferase 18 U/L (0-40); Blood Urea Nitrogen 14 mg/dL (8-23); Calcium 8.3 mg/dL (8.5-10.5); Carbon Dioxide 25 mmol/L (22-29); Chloride 95 mmol/L (98-107); Globulin 2.7 g/dL (1.3-4.6); Glucose 211 mg/dL (65-115); Magnesium 1.9 mg/dL (1.7-2.3); Osmolality Calculated 285 mOsm/kg (285-295); Phosphorus 4.2 mg/dL (2.5-4.5); Sodium 134 mmol/L (136-145); Total Protein 6.4 g/dL (6.6-8.7)
[2025-01-14 03:22] LABS: Anion Gap 18.6 (5-19); Potassium 4.6 mmol/L (3.5-5.1)
[2025-01-14 03:25] LABS: Lactate (Lactic Acid level) 5.2 mmol/L (0.5-2.2)
[2025-01-14] MEDS: sodium chloride 0.45% 1,000 ML 500 ML IV (03:32)
[2025-01-14] MEDS: oseltamivir phosphate 75 mg Capsule PO ×2 (03:32→17:15)
[2025-01-14] MEDS: vancomycin 1,250 MG/250 ML PIGGYBACK 166.67 MG IV (04:13)
[2025-01-14] MEDS: methylPREDNISolone sod succ 125 mg/2 mL INJ 60 MG IVP (05:51)
[2025-01-14] MEDS: pantoprazole DR 40 mg Tablet PO (05:51)
[2025-01-14 07:37] LABS: Lactic Sepsis W/Reflex 4.3 mmol/L (0.5-2.2)
[2025-01-14 08:50] LABS: Reflex Lactate Order REFLEX LACTIC ORDERD
[2025-01-14 09:40] LABS: Lactic Acid level (Lactate) 4.7 mmol/L (0.5-2.2)
[2025-01-14] MEDS: aspirin 81 mg EC Tablet PO (09:53)
[2025-01-14] MEDS: sodium chloride 0.9% 1,000 ML 100 ML IV (09:54)
[2025-01-14] MEDS: sennosides 8.6 mg Tablet 17.2 MG PO (09:54)
[2025-01-14] MEDS: docusate sodium 100 mg Capsule 200 MG PO (09:54)
--- NOTE | 2025-01-14 10:57 | PHA.VACGOAL ---
Vancomycin Goal - Goal Vancomycin Goal:: 15-20 mg/L Vancomycin Indication:: Pneumonia (SEPSIS) - Therapy Current therapy:: Azithromycin, Cefepime Day of therpy:: Day [1]of [] . Actual body weight (kg): 65.862 kg - Data Labs: WBC 12.64 10^3/uL (3.29-11.43) H 01/14/25 02:41 RBC 4.82 10^6/uL (3.85-5.65) 01/14/25 02:41 Hgb 14.60 g/dL (11.27-16.99) 01/14/25 02:41 Hct 44.8 % (37-53) 01/14/25 02:41 MCV 92.9 fl (82-101) 01/14/25 02:41 MCH 30.3 pg (27-33) 01/14/25 02:41 MCHC 32.6 g/dL (30-55) 01/14/25 02:41 RDW 12.6 % (12.1-15.1) 01/14/25 02:41 Sodium 134 mmol/L (136-145) L 01/14/25 02:41 Potassium 4.6 mmol/L (3.5-5.1) 01/14/25 02:41 Chloride 95 mmol/L (98-107) L 01/14/25 02:41 Carbon Dioxide 25 mmol/L (22-29) 01/14/25 02:41 Anion Gap 18.6 (5-19) 01/14/25 02:41 BUN 14 mg/dL (8-23) 01/14/25 02:41 Creatinine 1.1 mg/dL (0.7-1.2) 01/14/25 02:41 GFR Calculation Not Reportable 01/14/25 02:41 Treatment plan:: new consult Regimen:: New start vancomycin for Pneumonia/Sepsis. 1250 mg load dose given. Started on maintenance dose of 750 mg q12h.
--- NOTE | 2025-01-14 13:04 | USCV_ITS ---
Dick Dos Santos Age: 79 Gender: M : 1945 Exam Date: 01/14/2025 14:56 Ordering Phys: Fidel Callahan MD Technologist: [place] [facility] [place]: sob BP: / HR: Rhythm: Sinus Technical Quality: MEASUREMENTS (Male / Female) Normal Values FINDINGS Left Ventricle Normal left ventricular size, systolic function and wall thickness, with no regional wall motion abnormalities. Left ventricular ejection fraction is estimated at 60 %. Right Ventricle Right Atrium Left Atrium Mitral Valve Aortic Valve Tricuspid Valve Pulmonic Valve Pericardium Aorta IVC CONCLUSIONS Limited echo Normal left ventricular size, systolic function and wall thickness, with no regional wall motion abnormalities. Left ventricular ejection fraction is estimated at 60 %. There is no pericardial effusion. Anirudh Hernández MD (Electronically Signed) Final Date: 14 January 2025 21:56 S
[2025-01-14 13:39] LABS: Estmated Average Glucose 123; Hemoglobin A1C 5.9 % (4.0-6.0)
[2025-01-14 14:04] LABS: Thyroid Stimulating Hormone 0.75 uIU/mL (0.27-4.20); Vitamin B12 310 pg/mL (232-1245)
[2025-01-14 14:15] LABS: Iron 17 ug/dL (59-158); Percent Saturation 9.1 % (20-50); Total Iron Binding Capacity 186 mcg/dl; Unsaturated Iron Binding 169 ug/dL (112-347)
[2025-01-14 14:40] LABS: MRSA PCR OZH (swab) NOT DETECTED (Negative)
--- NOTE | 2025-01-14 14:56 | P.PN_ITS ---
Subjective 2 Subjective: Admitted overnight. Seen with spouse at bedside. Patient on 2 L of oxygen supplementation through his mouth. Complaining of difficulty in breathing. States he is still finding it hard to breathe. Denies any nausea, vomiting. Has remained afebrile. Vitals/I&O/Wt Last Vital Signs Temp 97.4 F L 01/14/25 11:36 Pulse 87 01/14/25 11:36 Resp 17 01/14/25 11:36 BP 135/73 01/14/25 11:36 Pulse Ox 93 01/14/25 11:36 O2 Del Method Nasal Cannula 01/14/25 11:36 O2 Flow Rate 2 01/14/25 11:07 01/13/25 01/14/25 01/14/25 22:59 06:59 14:59 Intake Total 0 / 0 2720.0 / 2720.0 1020 / 1020 Output Total 750 / 750 800 / 800 Balance 0 / 0 1970.0 / 1970.0 220 / 220 Weight last 48 hrs Weight 65.862 kg Weight 66.678 kg Physical Exam 2 Narrative: Constitutional: GENERAL APPEARANCE: cooperative, uncomfortable; not combative, not disheveled, ill appearing HENT: HEAD & SCALP: normocephalic and atraumatic; NOSE: external nose not normal EXTERNAL EAR: no external ears normal MOUTH: Normal oral and palatal mucosa present THROAT: posterior oropharynx normal Eye: PERRL, EOMI, normal conjunctiva b/l Neck: normal visual inspection, trachea midline, No anterior neck swelling, No tracheal deviation, no submandibular swelling, Thyroid normal , cervical ROM normal Lymph: no cervical, supraclavicular LAD Resp: positive use of accessory muscles, b/l expiratory wheezes, diminished breath sounds in the R. lower lung lobe and throughout the L. lower lung lobe, Cardio: RRR, no m/r/g, or clicks. 2+ radial and DP pulses. GI: normoactive bowel sounds, non-tender, non-distended, no guarding, no rigidity, no rebound tenderness, no hepatosplenomegaly. : (-) Hays in place draining urine Back/Pelvis: Deferred Extremity: No clubbing, No cyanosis and No edema Neuro: AO to person, place and time. CN normal except as noted. 5/5 motor strength present throughout. Normal motor muscle tone present throughout. No tremor noted. No motor abnormalities present. Psych: APPEARANCE: Yes grossly normal ATTITUDE: Yes calm and Yes engaged ACTIVITY/MOTOR BEHAVIOR: Yes appropriate eye contact SPEECH: Yes normal speech MOOD & AFFECT: Yes euthymic mood THOUGHT PROCESS: ___ THOUGHT CONTENT: ___ ATTENTION/CONCENTRATION: Yes attention grossly intact MEMORY/COGNITION: Yes memory grossly intact Data 01/14/25 02:41 01/14/25 02:41 Micro: Microbiology 01/13/25 21:09 Blood Culture - Preliminary Blood SPECIMEN COLLECTED 01/13/25 21:05 Blood Culture - Preliminary Blood SPECIMEN COLLECTED A&P Assessment and plan (1) Severe sepsis: (2) Acute hypoxic respiratory failure: (3) Influenza A: (4) COPD exacerbation: (5) Lactic acidosis: Plan Dick Dos Santos is a 79 year old male w/ CAD, [place] s/p 2 stents in 2018, HTN, HLD, basal cell carcinoma of the nose s/p reconstructive surgery w/ flap to the ED on with complaints of progressive shortness of breath, despite getting a 2L O2 tank earlier in the day. According to the patient's , he had his last follow-up for his reconstructive surgery on , and about a week after that, he he developed cough, rhinorrhea, and dyspnea. He went to a clinic around 12/25 to 2024, where he was given a Zpack. Last week around mid week, he stated that he could not catch his breath. Additionally, he had a productive cough of thick white sputum. He subsequently went to [facility]'s ED on Friday01/10/2024, where he was prescribed Amoxicillin w/ steroids. He was given breathing treatments, then steroids and abx and discharged to follow-up with his PCP if he did not improve. He followed up with his PCP on 01/13/2025 when he was given the oxygen tank 2L and diagnosed with COPD. According to patient's , while at home, the patient's breathing worsened, so she called the EMS. EMS gave him Solumedrol and a breathing treatment which helped. He endorses fever of 99F on forehead, chills, wheezing, and urinary incontinence, which appears to occur with Valsalva maneuver. He complains of sores on his mouth. He denies CP, palpitations, GI symptoms. The patient at baseline, cannot breathe well through the left nostril, due to the facial reconstructive surgery that he had, and the patient's tells me that they were informed that the patient would not be able to breathe well through the left nostril for about a year, because of the the time that it would take for the swelling in his left nostril to decrease post-surgery. Sepsis: SIRS: Tachycardic, Febrile, Leukocytosis Source: Pneumonia End organ damage: Respiratory failure patient Lactic acid elevated Patient did receive full 30 mL/kg BW contact. Continued on IV fluids for now. Having increased work of breathing. Appreciate CT chest on admission. Hold off on IV fluids for now. IV Lasix 20 mg one-time. Strict input output charting, daily weights. Check echocardiogram. Monitor blood pressures. Keep mean artery pressure 65 mmHg. Follow-up blood culture, check MRSA swab, trend procalcitonin, check urine bacterial antigen. Continue with empiric IV vancomycin, cefepime and azithromycin for double coverage. If MRSA swab negative will discontinue vancomycin. Acute hypoxic respiratory failure: In setting of COPD exacerbation due to influenza A, cannot rule out superadded bacterial infection. Check sputum culture as above. Supplementation keeping saturation over 90%. Currently patient is having high work of breathing. Start on high flow nasal cannula. Pulmicort twice daily, DuoNeb every 4 hours. Solu-Medrol 40 mg Q6 hourly. Aggressive pulmonary toilet with I-S and Acapella. Elevated lactate: Most likely in setting of increased work of breathing. Recheck in AM. Restart other home medications including aspirin, Plavix, Zetia, metoprolol 25 mg twice daily. Full code Cardiac diet Protonix for PUD prophylaxis Lovenox for DVT prophylaxis PDMP PDMP Reviewed: Not Reviewed Attestations 2 Medical Necessity Statement*: Require further hospitalization for management of sepsis with acute hypoxic respiratory failure in setting of influenza, superadded bacterial infection Other Coding Information Prolonged care (total time indicated above or notated here) (Severe hypoxic respiratory failure, persistent elevated lactate) Diagnoses Severe sepsis A41.9; R65.20 Acute hypoxic respiratory failure J96.01 Influenza A J10.1 COPD exacerbation J44.1 Lactic acidosis E87.20
[2025-01-14] MEDS: FUROsemide 10 mg/mL SDV 2mL 20 MG IVP (15:49)
[2025-01-14] MEDS: methylPREDNISolone sod succ 40 mg/mL INJ IVP ×2 (15:51→21:25)
[2025-01-14] MEDS: VANCOMYCIN ADD-Vantage 750 MG in 0.9% NaCl ADD-Vantage 250 ML 250 MG IV (17:15)
[2025-01-14] MEDS: metoprolol tartrate 25 mg Tablet PO (17:15)
[2025-01-14] MEDS: budesonide 0.5 mg/2 mL Neb INHALATION (19:23)
[2025-01-14] MEDS: atorvastatin 40 mg Tablet PO (21:25)
[2025-01-14] MEDS: enoxaparin 40 mg/0.4 mL Syringe SUBCUT (21:25)
[2025-01-15] VITALS (18 sets, daily range): BP systolic 125–146; BP diastolic 75–78; PULSE 66–89; RESP 16–20; TEMP 36.4–36.6; O2SAT 93–98
[2025-01-15] MEDS: AZITHROMYCIN ADD-Vantage 500 MG in 0.9% NaCl ADD-Vantage 250 ML 250 MG IV (00:38)
[2025-01-15] MEDS: ipratropium-albuterol 3 mL Neb INHALATION ×7 (01:03→23:31)
[2025-01-15] MEDS: methylPREDNISolone sod succ 40 mg/mL INJ IVP ×4 (04:52→20:29)
[2025-01-15] MEDS: VANCOMYCIN ADD-Vantage 750 MG in 0.9% NaCl ADD-Vantage 250 ML 250 MG IV (04:53)
[2025-01-15 05:01] LABS: Basophils % 0.1 %; Hematocrit 44.3 % (37-53); Lymphocytes % 3.8 %; Mean Corpuscular HGB Conc 32.7 g/dL (30-55); Mean Corpuscular Hemoglobin 30.3 pg (27-33); Mean Corpuscular Volume 92.7 fl (82-101); Mean Platelet Volume 10.3 fL (7.4-10.4); Monocytes # 0.7 10^3/uL (0.2-0.9); Monocytes % 2.6 %; Neutrophils # 23.85 10^3/uL (1.8-7.7); Nucleated Red Blood Cells % 0 %; Platelet Count 160 10^3/cmm (157-399); Red Blood Count 4.78 10^6/uL (3.85-5.65); Red Cell Distribution Width 12.7 % (12.1-15.1); White Blood Count 25.65 10^3/uL (3.29-11.43)
[2025-01-15 05:19] LABS: Magnesium 2.1 mg/dL (1.7-2.3)
[2025-01-15 05:24] LABS: Lactate (Lactic Acid level) 2.3 mmol/L (0.5-2.2)
[2025-01-15 05:25] LABS: Alanine Aminotransferase 18 U/L (0-41); Albumin Level 3.4 g/dL (3.5-5.2); Alkaline Phosphatase 65 U/L (40-130); Anion Gap 12.3 (5-19); Aspartate Amino Transferase 15 U/L (0-40); Blood Urea Nitrogen 16 mg/dL (8-23); Calcium 9.1 mg/dL (8.5-10.5); Carbon Dioxide 26 mmol/L (22-29); Chloride 103 mmol/L (98-107); Creatinine Clr Calc Pharmacy 77.9314; Globulin 3.4 g/dL (1.3-4.6); Glucose 144 mg/dL (65-115); Osmolality Calculated 288 mOsm/kg (285-295); Potassium 4.3 mmol/L (3.5-5.1); Sodium 137 mmol/L (136-145); Total Bilirubin 0.8 mg/dL (0.15-1.2); Total Protein 6.8 g/dL (6.6-8.7)
[2025-01-15 05:41] LABS: Folate Level 2.7 ng/mL (4.5-32.2)
[2025-01-15] MEDS: pantoprazole DR 40 mg Tablet PO (06:11)
[2025-01-15] MEDS: budesonide 0.5 mg/2 mL Neb INHALATION ×2 (07:14→20:07)
[2025-01-15] MEDS: docusate sodium 100 mg Capsule 200 MG PO (09:01)
[2025-01-15] MEDS: metoprolol tartrate 25 mg Tablet PO ×2 (09:01→17:29)
[2025-01-15] MEDS: clopidogrel 75 mg Tablet PO (09:01)
[2025-01-15] MEDS: aspirin 81 mg EC Tablet PO (09:01)
[2025-01-15] MEDS: ezetimibe 10 mg Tablet PO (09:01)
[2025-01-15] MEDS: oseltamivir phosphate 75 mg Capsule PO ×2 (09:01→17:29)
[2025-01-15] MEDS: sennosides 8.6 mg Tablet 17.2 MG PO (09:02)
[2025-01-15] MEDS: cefepime 2,000 mg SDV 2000 MG IVP (09:02)
--- NOTE | 2025-01-15 14:19 | P.PN_ITS ---
Subjective 2 Subjective: No acute events overnight. Today morning seen on high flow nasal cannula for saturating more than 92%. States he is feeling slightly better today. Breathing as he usually breathes at rest but getting short of breath on minimal exertion. Less tachypneic than yesterday. Has remained hemodynamically stable and afebrile. Vitals/I&O/Wt Last Vital Signs Temp 97.7 F 01/15/25 12:07 Pulse 78 01/15/25 14:00 Resp 16 01/15/25 12:07 BP 137/75 01/15/25 12:07 Pulse Ox 94 01/15/25 12:07 O2 Del Method Nasal Cannula 01/15/25 12:07 O2 Flow Rate 3 01/15/25 11:12 01/14/25 01/15/25 01/15/25 22:59 06:59 14:59 Intake Total 1480 / 2500 980 / 3480 960 / 960 Output Total 1575 / 2375 400 / 2775 1000 / 1000 Balance -95 / 125 580 / 705 -40 / -40 Weight last 48 hrs Weight 68.629 kg Weight 65.862 kg Weight 66.678 kg Physical Exam 2 Narrative: Constitutional: GENERAL APPEARANCE: cooperative, uncomfortable; not combative, not disheveled, ill appearing HENT: HEAD & SCALP: normocephalic and atraumatic; NOSE: external nose not normal EXTERNAL EAR: no external ears normal MOUTH: Normal oral and palatal mucosa present THROAT: posterior oropharynx normal Eye: PERRL, EOMI, normal conjunctiva b/l Neck: normal visual inspection, trachea midline, No anterior neck swelling, No tracheal deviation, no submandibular swelling, Thyroid normal , cervical ROM normal Lymph: no cervical, supraclavicular LAD Resp: positive use of accessory muscles, b/l expiratory wheezes, diminished breath sounds in the R. lower lung lobe and throughout the L. lower lung lobe, Cardio: RRR, no m/r/g, or clicks. 2+ radial and DP pulses. GI: normoactive bowel sounds, non-tender, non-distended, no guarding, no rigidity, no rebound tenderness, no hepatosplenomegaly. : (-) Hays in place draining urine Back/Pelvis: Deferred Extremity: No clubbing, No cyanosis and No edema Neuro: AO to person, place and time. CN normal except as noted. 5/5 motor strength present throughout. Normal motor muscle tone present throughout. No tremor noted. No motor abnormalities present. Psych: APPEARANCE: Yes grossly normal ATTITUDE: Yes calm and Yes engaged ACTIVITY/MOTOR BEHAVIOR: Yes appropriate eye contact SPEECH: Yes normal speech MOOD & AFFECT: Yes euthymic mood THOUGHT PROCESS: ___ THOUGHT CONTENT: ___ ATTENTION/CONCENTRATION: Yes attention grossly intact MEMORY/COGNITION: Yes memory grossly intact Data 01/15/25 04:28 01/15/25 04:28 Micro: Microbiology 01/13/25 21:09 Blood Culture - Preliminary Blood NEGATIVE TO DATE 01/13/25 21:05 Blood Culture - Preliminary Blood NEGATIVE TO DATE A&P Assessment and plan (1) Severe sepsis: (2) Acute hypoxic respiratory failure: (3) Influenza A: (4) COPD exacerbation: (5) Lactic acidosis: Plan Dick Dos Santos is a 79 year old male w/ CAD, [place] s/p 2 stents in 2018, HTN, HLD, basal cell carcinoma of the nose s/p reconstructive surgery w/ flap to the ED on with complaints of progressive shortness of breath, despite getting a 2L O2 tank earlier in the day. According to the patient's , he had his last follow-up for his reconstructive surgery on , and about a week after that, he he developed cough, rhinorrhea, and dyspnea. He went to a clinic around 12/25 to 2024, where he was given a Zpack. Last week around mid week, he stated that he could not catch his breath. Additionally, he had a productive cough of thick white sputum. He subsequently went to [facility] ED on Friday01/10/2024, where he was prescribed Amoxicillin w/ steroids. He was given breathing treatments, then steroids and abx and discharged to follow-up with his PCP if he did not improve. He followed up with his PCP on 01/13/2025 when he was given the oxygen tank 2L and diagnosed with COPD. According to patient's , while at home, the patient's breathing worsened, so she called the EMS. EMS gave him Solumedrol and a breathing treatment which helped. He endorses fever of 99F on forehead, chills, wheezing, and urinary incontinence, which appears to occur with Valsalva maneuver. He complains of sores on his mouth. He denies CP, palpitations, GI symptoms. The patient at baseline, cannot breathe well through the left nostril, due to the facial reconstructive surgery that he had, and the patient's tells me that they were informed that the patient would not be able to breathe well through the left nostril for about a year, because of the the time that it would take for the swelling in his left nostril to decrease post-surgery. Sepsis: SIRS: Tachycardic, Febrile, Leukocytosis Source: Pneumonia End organ damage: Respiratory failure patient Lactic acid elevated Patient did receive full 30 mL/kg BW contact. Continued on IV fluids for now. Having increased work of breathing. Appreciate CT chest on admission. Echocardiogram showed a poor echo window with an estimated EF of around 60%. Monitor blood pressures. Keep mean artery pressure 65 mmHg. Follow-up blood culture, negative MRSA swab, appreciate procalcitonin trend. Switch from cefepime to IV Zosyn and continue with azithromycin for atypical coverage. DC vancomycin. Tamiflu 75 mg twice daily for influenza A. Will plan to finish a 5-day course. Dose renally. Acute hypoxic respiratory failure: In setting of COPD exacerbation due to influenza A, cannot rule out superadded bacterial infection. Check sputum culture as above. Still not collected. Supplementation keeping saturation over 90%. Currently patient is having high work of breathing. Start on high flow nasal cannula. Pulmicort twice daily, DuoNeb every 4 hours. Continue with Solu-Medrol 40 mg Q6 hourly. If remains stable plan to wean in next 24 hours. Aggressive pulmonary toilet with I-S and Acapella. Elevated lactate: Improving. Most likely in setting of increased work of breathing. Recheck in AM. Leukocytosis: Could be in setting of high-dose steroids. Continue to monitor and follow-up culture results. Restart other home medications including aspirin, Plavix, Zetia, metoprolol 25 mg twice daily. Full code Cardiac diet Protonix for PUD prophylaxis Lovenox for DVT prophylaxis PDMP PDMP Reviewed: Not Reviewed Attestations 2 Medical Necessity Statement*: Requires further hospitalization for management of hypoxic respiratory failure in setting of pneumonia, COPD exacerbation in setting of influenza A, superadded bacterial infection Diagnoses Severe sepsis A41.9; R65.20 Acute hypoxic respiratory failure J96.01 Influenza A J10.1 COPD exacerbation J44.1 Lactic acidosis E87.20
[2025-01-15] MEDS: piperacillin-tazobactam 3.375 GM in sodium chloride 0.9% (plus) 50 ML IV ×2 (15:16→23:22)
[2025-01-15] MEDS: atorvastatin 40 mg Tablet PO (20:29)
[2025-01-15] MEDS: enoxaparin 40 mg/0.4 mL Syringe SUBCUT (20:29)
[2025-01-16] VITALS (16 sets, daily range): BP systolic 106–168; BP diastolic 65–88; PULSE 70–106; RESP 16–21; TEMP 36.3–36.8; O2SAT 91–96
[2025-01-16] MEDS: AZITHROMYCIN ADD-Vantage 500 MG in 0.9% NaCl ADD-Vantage 250 ML 250 MG IV (01:56)
[2025-01-16] MEDS: methylPREDNISolone sod succ 40 mg/mL INJ IVP ×4 (03:19→21:45)
[2025-01-16] MEDS: ipratropium-albuterol 3 mL Neb INHALATION ×5 (04:46→23:48)
[2025-01-16 05:14] LABS: Basophils % 0.1 %; Hematocrit 44.8 % (37-53); Lymphocytes # 1.1 10^3/uL (0.8-4.8); Lymphocytes % 3.8 %; Mean Corpuscular HGB Conc 33.3 g/dL (30-55); Mean Corpuscular Hemoglobin 31.1 pg (27-33); Mean Corpuscular Volume 93.5 fl (82-101); Mean Platelet Volume 10.2 fL (7.4-10.4); Monocytes # 0.9 10^3/uL (0.2-0.9); Monocytes % 2.9 %; Neutrophils # 27.14 10^3/uL (1.8-7.7); Neutrophils % 92.1 %; Nucleated Red Blood Cells % 0 %; Platelet Count 202 10^3/cmm (157-399); Red Blood Count 4.79 10^6/uL (3.85-5.65); Red Cell Distribution Width 12.9 % (12.1-15.1)
[2025-01-16 05:28] LABS: Vancomycin Trough 6.3 ug/mL (10-15)
[2025-01-16 05:40] LABS: Alanine Aminotransferase 18 U/L (0-41); Albumin Level 3.7 g/dL (3.5-5.2); Alkaline Phosphatase 63 U/L (40-130); Anion Gap 17.5 (5-19); Aspartate Amino Transferase 18 U/L (0-40); Blood Urea Nitrogen 22 mg/dL (8-23); Calcium 9.1 mg/dL (8.5-10.5); Carbon Dioxide 27 mmol/L (22-29); Chloride 98 mmol/L (98-107); Globulin 2.7 g/dL (1.3-4.6); Glucose 120 mg/dL (65-115); Magnesium 2.2 mg/dL (1.7-2.3); Osmolality Calculated 291 mOsm/kg (285-295); Phosphorus 4.2 mg/dL (2.5-4.5); Potassium 4.5 mmol/L (3.5-5.1); Sodium 138 mmol/L (136-145); Total Bilirubin 0.9 mg/dL (0.15-1.2); Total Protein 6.4 g/dL (6.6-8.7)
[2025-01-16] MEDS: pantoprazole DR 40 mg Tablet PO (06:01)
[2025-01-16] MEDS: piperacillin-tazobactam 3.375 GM in sodium chloride 0.9% (plus) 50 ML IV ×3 (06:01→21:45)
[2025-01-16] MEDS: budesonide 0.5 mg/2 mL Neb INHALATION ×2 (08:35→19:28)
[2025-01-16] MEDS: sennosides 8.6 mg Tablet 17.2 MG PO (09:50)
[2025-01-16] MEDS: oseltamivir phosphate 75 mg Capsule PO ×2 (09:50→17:12)
[2025-01-16] MEDS: ezetimibe 10 mg Tablet PO (09:50)
[2025-01-16] MEDS: clopidogrel 75 mg Tablet PO (09:50)
[2025-01-16] MEDS: docusate sodium 100 mg Capsule 200 MG PO (09:50)
[2025-01-16] MEDS: aspirin 81 mg EC Tablet PO (09:51)
[2025-01-16] MEDS: metoprolol tartrate 25 mg Tablet PO ×2 (09:51→17:12)
--- NOTE | 2025-01-16 13:20 | P.PN_ITS ---
Subjective 2 Subjective: No acute events overnight. On examination today seen with at bedside. Patient states he is feeling a lot better. Down to 2 L of oxygen supplementation. Less tachypneic. Denies any nausea or vomiting. Vitals/I&O/Wt Last Vital Signs Temp 97.5 F L 01/16/25 12:22 Pulse 74 01/16/25 12:22 Resp 18 01/16/25 12:22 BP 137/76 01/16/25 12:22 Pulse Ox 94 01/16/25 12:22 O2 Del Method Nasal Cannula 01/16/25 12:22 O2 Flow Rate 2 01/16/25 08:35 01/15/25 01/16/25 01/16/25 22:59 06:59 14:59 Intake Total 530 / 1490 540 / 2030 410 / 410 Output Total 750 / 1750 300 / 2050 Balance -220 / -260 240 / -20 410 / 410 Weight last 48 hrs Weight 67.54 kg Weight 68.629 kg Physical Exam 2 Narrative: Constitutional: GENERAL APPEARANCE: cooperative, uncomfortable; not combative, not disheveled, ill appearing HENT: HEAD & SCALP: normocephalic and atraumatic; NOSE: external nose not normal EXTERNAL EAR: no external ears normal MOUTH: Normal oral and palatal mucosa present THROAT: posterior oropharynx normal Eye: PERRL, EOMI, normal conjunctiva b/l Neck: normal visual inspection, trachea midline, No anterior neck swelling, No tracheal deviation, no submandibular swelling, Thyroid normal , cervical ROM normal Lymph: no cervical, supraclavicular LAD Resp: positive use of accessory muscles, b/l expiratory wheezes, diminished breath sounds in the R. lower lung lobe and throughout the L. lower lung lobe, Cardio: RRR, no m/r/g, or clicks. 2+ radial and DP pulses. GI: normoactive bowel sounds, non-tender, non-distended, no guarding, no rigidity, no rebound tenderness, no hepatosplenomegaly. : (-) Hays in place draining urine Back/Pelvis: Deferred Extremity: No clubbing, No cyanosis and No edema Neuro: AO to person, place and time. CN normal except as noted. 5/5 motor strength present throughout. Normal motor muscle tone present throughout. No tremor noted. No motor abnormalities present. Psych: APPEARANCE: Yes grossly normal ATTITUDE: Yes calm and Yes engaged ACTIVITY/MOTOR BEHAVIOR: Yes appropriate eye contact SPEECH: Yes normal speech MOOD & AFFECT: Yes euthymic mood THOUGHT PROCESS: ___ THOUGHT CONTENT: ___ ATTENTION/CONCENTRATION: Yes attention grossly intact MEMORY/COGNITION: Yes memory grossly intact Data 01/16/25 04:25 01/16/25 04:25 A&P Assessment and plan (1) Severe sepsis: (2) Acute hypoxic respiratory failure: (3) Influenza A: (4) COPD exacerbation: (5) Lactic acidosis: Plan Dick Dos Santos is a 79 year old male w/ CAD, [place] s/p 2 stents in 2018, HTN, HLD, basal cell carcinoma of the nose s/p reconstructive surgery w/ flap to the ED on with complaints of progressive shortness of breath, despite getting a 2L O2 tank earlier in the day. According to the patient's , he had his last follow-up for his reconstructive surgery on , and about a week after that, he he developed cough, rhinorrhea, and dyspnea. He went to a clinic around 12/25 to 2024, where he was given a Zpack. Last week around mid week, he stated that he could not catch his breath. Additionally, he had a productive cough of thick white sputum. He subsequently went to [facility] ED on Friday01/10/2024, where he was prescribed Amoxicillin w/ steroids. He was given breathing treatments, then steroids and abx and discharged to follow-up with his PCP if he did not improve. He followed up with his PCP on 01/13/2025 when he was given the oxygen tank 2L and diagnosed with COPD. According to patient's , while at home, the patient's breathing worsened, so she called the EMS. EMS gave him Solumedrol and a breathing treatment which helped. He endorses fever of 99F on forehead, chills, wheezing, and urinary incontinence, which appears to occur with Valsalva maneuver. He complains of sores on his mouth. He denies CP, palpitations, GI symptoms. The patient at baseline, cannot breathe well through the left nostril, due to the facial reconstructive surgery that he had, and the patient's tells me that they were informed that the patient would not be able to breathe well through the left nostril for about a year, because of the the time that it would take for the swelling in his left nostril to decrease post-surgery. Sepsis: SIRS: Tachycardic, Febrile, Leukocytosis Source: Pneumonia End organ damage: Respiratory failure patient Lactic acid elevated Patient did receive full 30 mL/kg BW contact. Continued on IV fluids for now. Having increased work of breathing. Appreciate CT chest on admission. Echocardiogram showed a poor echo window with an estimated EF of around 60%. Monitor blood pressures. Keep mean artery pressure 65 mmHg. Follow-up blood culture, negative MRSA swab, appreciate procalcitonin trend. Switch from cefepime to IV Zosyn and continue with azithromycin for atypical coverage. DC vancomycin. Tamiflu 75 mg twice daily for influenza A. Will plan to finish a 5-day course. Dose renally. Acute hypoxic respiratory failure: In setting of COPD exacerbation due to influenza A, cannot rule out superadded bacterial infection. Check sputum culture as above. Still not collected. Supplementation keeping saturation over 90%. Currently patient is having high work of breathing. Start on high flow nasal cannula. Pulmicort twice daily, DuoNeb every 4 hours. Continue with Solu-Medrol 40 mg Q6 hourly. If remains stable plan to wean in next 24 hours. Aggressive pulmonary toilet with I-S and Acapella. Elevated lactate: Improving. Most likely in setting of increased work of breathing. Recheck in AM. Leukocytosis: Could be in setting of high-dose steroids. Continue to monitor and follow-up culture results. Restart other home medications including aspirin, Plavix, Zetia, metoprolol 25 mg twice daily. Plan for the day: Oxygen supplementation keeping saturation over 90%. Wean accordingly. Pulmicort twice daily, DuoNebs every 4 hours. Wean Solu-Medrol 40 mg every 8 hourly. Aggressive pulmonary toilet. Follow-up blood culture and sputum culture. Continue with oral azithromycin for 3-day course and IV Zosyn. Tamiflu 75 mg twice daily for 5 days. Monitor renal functions. Out of bed to chair. Full code Cardiac diet Protonix for PUD prophylaxis Lovenox for DVT prophylaxis PDMP PDMP Reviewed: Not Reviewed Attestations 2 Medical Necessity Statement*: Requires further hospitalization for management. Hypoxic respiratory failure in setting of influenza with concern for superadded bacterial infection. Diagnoses Severe sepsis A41.9; R65.20 Acute hypoxic respiratory failure J96.01 Influenza A J10.1 COPD exacerbation J44.1 Lactic acidosis E87.20
[2025-01-16] MEDS: enoxaparin 40 mg/0.4 mL Syringe SUBCUT (21:45)
[2025-01-16] MEDS: atorvastatin 40 mg Tablet PO (21:45)
[2025-01-17] VITALS (12 sets, daily range): BP systolic 124–131; BP diastolic 76–84; PULSE 63–88; RESP 16–18; TEMP 36.4–36.6; O2SAT 85–98
[2025-01-17] MEDS: ipratropium-albuterol 3 mL Neb INHALATION ×4 (04:04→20:20)
[2025-01-17 05:22] LABS: Basophils % 0.1 %; Hematocrit 42.4 % (37-53); Lymphocytes % 4.8 %; Mean Corpuscular HGB Conc 33.5 g/dL (30-55); Mean Corpuscular Hemoglobin 30.8 pg (27-33); Mean Platelet Volume 9.9 fL (7.4-10.4); Monocytes # 1.1 10^3/uL (0.2-0.9); Monocytes % 5.3 %; Neutrophils # 18.23 10^3/uL (1.8-7.7); Neutrophils % 88.8 %; Nucleated Red Blood Cells % 0 %; Platelet Count 198 10^3/cmm (157-399); Red Blood Count 4.61 10^6/uL (3.85-5.65); White Blood Count 20.53 10^3/uL (3.29-11.43)
[2025-01-17 05:42] LABS: Magnesium 2.3 mg/dL (1.7-2.3); Phosphorus 4.2 mg/dL (2.5-4.5)
[2025-01-17 06:01] LABS: Alanine Aminotransferase 22 U/L (0-41); Albumin Level 3.6 g/dL (3.5-5.2); Alkaline Phosphatase 56 U/L (40-130); Anion Gap 15.2 (5-19); Aspartate Amino Transferase 21 U/L (0-40); Blood Urea Nitrogen 26 mg/dL (8-23); Calcium 8.8 mg/dL (8.5-10.5); Carbon Dioxide 29 mmol/L (22-29); Chloride 96 mmol/L (98-107); Creatinine Clr Calc Pharmacy 68.1963; Globulin 2.6 g/dL (1.3-4.6); Glucose 103 mg/dL (65-115); Osmolality Calculated 287 mOsm/kg (285-295); Potassium 4.2 mmol/L (3.5-5.1); Sodium 136 mmol/L (136-145); Total Protein 6.2 g/dL (6.6-8.7)
[2025-01-17] MEDS: pantoprazole DR 40 mg Tablet PO (06:15)
[2025-01-17] MEDS: piperacillin-tazobactam 3.375 GM in sodium chloride 0.9% (plus) 50 ML IV ×2 (06:16→13:36)
[2025-01-17] MEDS: methylPREDNISolone sod succ 40 mg/mL INJ IVP ×2 (06:16→13:36)
[2025-01-17] MEDS: ezetimibe 10 mg Tablet PO (08:12)
[2025-01-17] MEDS: clopidogrel 75 mg Tablet PO (08:12)
[2025-01-17] MEDS: aspirin 81 mg EC Tablet PO (08:12)
[2025-01-17] MEDS: oseltamivir phosphate 75 mg Capsule PO ×2 (08:12→17:14)
[2025-01-17] MEDS: metoprolol tartrate 25 mg Tablet PO ×2 (08:12→17:14)
--- NOTE | 2025-01-17 08:57 | PC.CHAP ---
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 [] Patient/Family/Request visit [] Outpatient visit [] Follow-up visit [] Physician referral [] Code/Alert [x] Routine visit [] Staff referral [] Actively dying [] Patient sleeping [] Family support [] [] Out of room [] Palliative care [] [] Receiving care in room [] Pre-surgical visit [] Trauma [] Long length of stay [] ICU visit [] Other: Relational/Emotional Strength [] Patient feels connected with others/family/visitors/staff [] Distress [] Loneliness/isolation [] Abandonment Spirituality of Patient [] Person of Ramya [] Attends Yarsanism of their Ramya [] Believes in Prayer [] Reads Bible or Rastafarian materials [] There are Spiritual issues to be addressed 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 [x] Prayer [] Active listening [] Non-anxious presence [] Spiritual/emotional support [] Crisis/trauma care [] Spiritual counseling [] Bereavement support [] Provided bereavement packet [] Provided Bible/devotional materials [] Provided toy/stuffed animal, coloring book to patient or family member [] Provided Communion [] Anointing/[place] [] Salvation [] Completed spiritual assessment [] Other: Impact on Illness or Injury [] Angry [] Fearful [] Anxious [] Often cries [] Exhaustion [] Unable to work [] Unable to attend catholic [] Unable to walk/stand [] Unable to read [] Unable to drive [] Unable to eat/drink [] Unable to sleep [] Unable to be with family [] Patient intubated [] Other: Summary precaution Time spent with patient
--- NOTE | 2025-01-17 11:42 | PC.RESP ---
therapist busy with critical care in emergency room
--- NOTE | 2025-01-17 15:16 | PC.SOCIAL ---
IMM updated IMM dated and initialed, copy given to patient and copy placed in chart.
[2025-01-17] MEDS: budesonide 0.5 mg/2 mL Neb INHALATION (20:20)
[2025-01-17] MEDS: enoxaparin 40 mg/0.4 mL Syringe SUBCUT (20:47)
[2025-01-17] MEDS: atorvastatin 40 mg Tablet PO (20:47)
--- NOTE | 2025-01-17 20:51 | P.PN_ITS ---
Subjective 2 Subjective: He is still getting easily dyspneic, got very dyspneic with walking to the bathroom. Wheezing. Requiring nasal cannula oxygen. Became tremulous this morning. Vitals/I&O/Wt Last Vital Signs Temp 97.9 F 01/17/25 20:00 Pulse 68 01/17/25 20:21 Resp 16 01/17/25 20:21 BP 131/76 01/17/25 20:00 Pulse Ox 96 01/17/25 20:21 O2 Del Method Nasal Cannula 01/17/25 20:21 O2 Flow Rate 3 01/17/25 20:21 01/17/25 01/17/25 01/17/25 06:59 14:59 22:59 Intake Total 770 / 2070 50 / 50 240 / 290 Output Total 225 / 625 200 / 200 Balance 545 / 1445 -150 / -150 240 / 90 Weight last 48 hrs Weight 65.862 kg Weight 67.54 kg Physical Exam 2 Narrative: Accompanied by his . Const: COMMON NORMALS: patient oriented x3 and alert GENERAL APPEARANCE: c ooperative ORIENTATION/CONSCIOUSNESS: Yes awake HENMT: COMMON NORMALS: oropharynx normal Neck/C-Spine: COMMON NORMALS: no JVD Resp: AUSCULTATION: wheezes and diminished lung sounds Cardio: COMMON NORMALS: no JVD, regular rhythm, S1 normal heart sound present, S2 normal heart sound present and No murmurs present (Cardio) RHYTHM: regular rhythm HEART SOUNDS: S1 normal heart sound present and S2 normal heart sound present GI: COMMON NORMALS: Normal to inspection, nondistended, normoactive bowel sounds present, Soft to palpation and non-tender PALPATION: Yes Soft to palpation Extremity: COMMON NORMALS: no joint enlargement and no pedal edema Neuro: COMMON NORMALS: patient oriented x3 and moves all extremities S ENSORIUM/ORIENTATION: Yes alert Skin: COMMON NORMALS: no rashes or lesions noted GENERAL SKIN EXAM: no rashes or lesions noted Data 01/17/25 04:46 01/17/25 04:46 Micro: Microbiology 01/16/25 04:30 Gram Stain - Final Sputum - Expectorated Sputum Sputum Culture - Preliminary A&P Assessment and plan (1) Severe sepsis: (2) Acute hypoxic respiratory failure: (3) Influenza A: (4) COPD exacerbation: (5) Lactic acidosis: Plan Dickmalik Dos Santos is a 79 year old male w/ CAD, [place] s/p 2 stents in 2018, HTN, HLD, basal cell carcinoma of the nose s/p reconstructive surgery w/ flap to the ED with complaints of progressive shortness of breath, despite getting a 2L O2 tank earlier in the day. According to the patient's , he had his last follow-up for his reconstructive surgery on , and about a week after that, he he developed cough, rhinorrhea, and dyspnea. He went to a clinic around 12/25 to 2024, where he was given a Zpack. Last week around mid week, he stated that he could not catch his breath. Additionally, he had a productive cough of thick white sputum. He subsequently went to [facility]'s ED on Friday01/10/2024, where he was prescribed Amoxicillin w/ steroids. He was given breathing treatments, then steroids and abx and discharged to follow-up with his PCP if he did not improve. He followed up with his PCP on 01/13/2025 when he was given the oxygen tank 2L and diagnosed with COPD. According to patient's , while at home, the patient's breathing worsened, so she called the EMS. EMS gave him Solumedrol and a breathing treatment which helped. He endorses fever of 99F on forehead, chills, wheezing, and urinary incontinence, which appears to occur with Valsalva maneuver. He complains of sores on his mouth. He denies CP, palpitations, GI symptoms. The patient at baseline, cannot breathe well through the left nostril, due to the facial reconstructive surgery that he had, and the patient's tells me that they were informed that the patient would not be able to breathe well through the left nostril for about a year, because of the the time that it would take for the swelling in his left nostril to decrease post-surgery. Respiratory failure: Becoming quite dyspneic with short distance walking to the bathroom. Continues to require 3 L nasal cannula oxygen. Wheezing, diminished air entry. Today also tremulous. Will switch breathing treatments, steroid. However, given persistent respiratory failure, needs to continue. Switch to Xopenex, switch steroid to Decadron for COPD exacerbation. Monitor for risk of encephalopathy, hypertension, gastritis, hyperglycemia with IV steroid. Continue treatment of influenza Tamiflu. Continue empiric antibiotic coverage with Zosyn and azithromycin. Not ready for discharge. Continue oxygen support, wean down as tolerating. Reassess. Reviewed vitals, CBC, CMP, echocardiogram, CTA, blood culture. 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 Sepsis: SIRS: Tachycardic, Febrile, Leukocytosis Source: Pneumonia End organ damage: Respiratory failure patient Lactic acid elevated Patient did receive full 30 mL/kg BW contact. Continued on IV fluids for now. Having increased work of breathing. Appreciate CT chest on admission. Echocardiogram showed a poor echo window with an estimated EF of around 60%. Monitor blood pressures. Keep mean artery pressure 65 mmHg. Follow-up blood culture, negative MRSA swab, appreciate procalcitonin trend. Elevated lactate: Resolved. Most likely in setting of increased work of breathing. Leukocytosis: Could be in setting of high-dose steroids. Continue to monitor and follow-up culture results. Full code Cardiac diet Protonix for PUD prophylaxis Lovenox for DVT prophylaxis PDMP PDMP Reviewed: Not Reviewed Attestations 2 Medical Necessity Statement*: Continue admission process management of respiratory failure, COPD exacerbation, influenza, pneumonia. and High MDM includes amount and/or complexity of data reviewed/ordered [ resulted lab(s)/test(s), ordered lab(s)/test(s) and other healthcare professional discussion] and described risk of complication, morbidity or mortality of management as documented Diagnoses Severe sepsis A41.9; R65.20 Acute hypoxic respiratory failure J96.01 Influenza A J10.1 COPD exacerbation J44.1 Lactic acidosis E87.20
[2025-01-18] VITALS (9 sets, daily range): BP systolic 111–150; BP diastolic 72–91; PULSE 62–83; RESP 16–18; TEMP 36.3–36.6; O2SAT 95–98
[2025-01-18] MEDS: levalbuterol 1.25 mg/3 mL Neb INHALATION ×2 (00:18→08:49)
[2025-01-18] MEDS: ipratropium 0.5 mg/2.5 mL Neb INHALATION ×2 (03:02→08:49)
[2025-01-18] MEDS: piperacillin-tazobactam 3.375 GM in sodium chloride 0.9% (plus) 50 ML IV (04:00)
[2025-01-18 05:12] LABS: Alanine Aminotransferase 26 U/L (0-41); Albumin Level 3.4 g/dL (3.5-5.2); Alkaline Phosphatase 47 U/L (40-130); Anion Gap 11.3 (5-19); Aspartate Amino Transferase 22 U/L (0-40); Blood Urea Nitrogen 26 mg/dL (8-23); Calcium 8.6 mg/dL (8.5-10.5); Carbon Dioxide 32 mmol/L (22-29); Chloride 98 mmol/L (98-107); Creatinine Clr Calc Pharmacy 61.3767; Globulin 2.6 g/dL (1.3-4.6); Glucose 89 mg/dL (65-115); Osmolality Calculated 288 mOsm/kg (285-295); Potassium 4.3 mmol/L (3.5-5.1); Sodium 137 mmol/L (136-145)
[2025-01-18] MEDS: pantoprazole DR 40 mg Tablet PO (07:05)
[2025-01-18] MEDS: budesonide 0.5 mg/2 mL Neb INHALATION (08:49)
[2025-01-18] MEDS: aspirin 81 mg EC Tablet PO (09:00)
[2025-01-18] MEDS: ezetimibe 10 mg Tablet PO (09:00)
[2025-01-18] MEDS: metoprolol tartrate 25 mg Tablet PO (09:01)
[2025-01-18] MEDS: oseltamivir phosphate 75 mg Capsule PO (09:01)
[2025-01-18] MEDS: clopidogrel 75 mg Tablet PO (09:01)
[2025-01-18] MEDS: dexamethasone 10 mg/mL INJ 6 MG IVP (09:01)
--- NOTE | 2025-01-18 09:15 | P.DS_ITS ---
Discharge Providers Date of Admission: 01/14/25 00:26 Date of Discharge: January 18, 2025 Attending Provider at Admission: Shazia Giang MD Attending Provider at Discharge: Gennaro Goetz MD Primary Care Provider: DIAN Chase Diagnoses at Discharge Discharge Diagnosis (1) Severe sepsis: Status: Acute (2) Acute hypoxic respiratory failure: Status: Acute (3) Influenza A: Status: Acute (4) COPD exacerbation: Status: Acute (5) Lactic acidosis: Status: Acute Reason for Visit Reason for Visit: SOB Hospital Course Hospital Course Dick Dos Santos is a 79 year old male w/ CAD, NE s/p 2 stents in 2018, HTN, HLD, basal cell carcinoma of the nose s/p reconstructive surgery w/ flap to the ED on with complaints of progressive shortness of breath, found to have severe sepsis with acute hypoxic respiratory failure secondary to influenza A infection complicated by bacterial pneumonia. He was also found to have acute COPD exacerbation. He was treated with Tamiflu, antibiotics, steroids, and breathing treatments. With treatment, his symptomatology improved. Patient transition to oral treatment as per discharge medication reconciliation below at discharge. He is to follow-up with his embroidery finisher as well as PCP for ongoing care. Physical Exam Narrative: General: Patient is awake and alert. Pleasant. Head: Normocephalic. Atraumatic. EOM intact. Neck: No JVD. Cardiovascular: RRR. No gallops. No murmurs. Lungs: Faint end expiratory wheeze., no use of accessory muscles, no crackles. On supplementa oxygen l support. Skin: No jaundice. No rashes. Abdomen: Normal bowel sounds, abdomen soft and nontender. Genito Urinary: Genital exam not performed since complaints not related. Rectal: Rectal exam not performed since no symptoms indicated blood loss. Extremities: No cyanosis or clubbing. Musculoskeletal: No swollen or erythematous joints. Neurological: Moves all 4 extremities. No myoclonus. Discharge Data Studies Completed and Pending Completed Studies During Hospitalization Category Date Time Status CTA chest [CT angio chest PE protcl [id number]] Stat Cat Scan 01/13/25 21:42 Completed XR chest 1V portable [id number] Stat Exams 01/13/25 20:33 Completed CV. echo complete* [id number] Routine Ultrasound 01/14/25 13:04 Completed Pending at discharge Category Date Time Status Bacterial Antigen Stat Lab 01/14/25 13:04 Ordered Blood Culture Stat Lab 01/13/25 21:09 Results Sputum Culture and Gram Stain Stat Lab 01/16/25 04:30 Results Radiology Impressions Chest X-Ray 01/13/25 20:33 IMPRESSION: As above. Chest CTA 01/13/25 21:42 IMPRESSION: 1. No evidence of pulmonary embolism. 2. Patchy ground-glass opacities and areas of tree-in-bud nodularity in the lower lobes likely represent an atypical infectious/inflammatory process. Consider imaging follow-up after clinical treatment to document resolution. 3. Ground-glass and consolidative opacities in the right middle lobe may also represent infection. Attention on follow-up recommended. 4. Moderate emphysema. COMMENTS: The presence of pulmonary emphysema on CT is an independent risk factor for lung cancer. In the absence of a history or active diagnosis of lung cancer, it is recommended that this patient with emphysema be evaluated for enrollment in a low dose CT lung cancer screening program. Laboratory Results WBC 20.53 10^3/uL (3.29-11.43) H 01/17/25 04:46 RBC 4.61 10^6/uL (3.85-5.65) 01/17/25 04:46 Hgb 14.20 g/dL (11.27-16.99) 01/17/25 04:46 Hct 42.4 % (37-53) 01/17/25 04:46 MCV 92.0 fl (82-101) 01/17/25 04:46 MCH 30.8 pg (27-33) 01/17/25 04:46 MCHC 33.5 g/dL (30-55) 01/17/25 04:46 RDW 13.0 % (12.1-15.1) 01/17/25 04:46 Plt Count 198 10^3/cmm (157-399) 01/17/25 04:46 MPV 9.9 fL (7.4-10.4) 01/17/25 04:46 Neut % (Auto) 88.8 % 01/17/25 04:46 Lymph % (Auto) 4.8 % 01/17/25 04:46 Jenkins % (Auto) 5.3 % 01/17/25 04:46 Eos % (Auto) 0.0 % 01/17/25 04:46 Baso % (Auto) 0.1 % 01/17/25 04:46 Neut # (Auto) 18.23 10^3/uL (1.8-7.7) H 01/17/25 04:46 Lymph # (Auto) 1.0 10^3/uL (0.8-4.8) 01/17/25 04:46 Jenkins # (Auto) 1.1 10^3/uL (0.2-0.9) H 01/17/25 04:46 Eos # (Auto) 0.0 10^3/uL (0.0-0.8) 01/17/25 04:46 Baso # (Auto) 0.0 10^3/uL (0.0-0.1) 01/17/25 04:46 Nucleated RBC % (auto) 0 % 01/17/25 04:46 Nucleated RBCs # 0.0 /100WBC 01/17/25 04:46 D-Dimer 1.10 ug/mLFEU (0-0.59) H 01/13/25 20:45 Specimen Type Arterial 01/13/25 20:41 Sample Site Radial, right 01/13/25 20:41 ABG pH 7.46 (7.35-7.45) H 01/13/25 20:41 ABG pCO2 38.0 mmHg (35-45) 01/13/25 20:41 ABG pO2 58.6 mmHg (80.0-100.0) L 01/13/25 20:41 ABG HCO3 27.0 mmol/L (22-26) H 01/13/25 20:41 ABG O2 Saturation 92.3 01/13/25 20:41 ABG Base Excess 3.2 mmol/L (-2.0-2.0) H 01/13/25 20:41 Dimitri Test Pos 01/13/25 20:41 A-a O2 Gradient 5.7 mmHg (5-10) 01/13/25 20:41 Hematocrit 50.4 % (42-52) 01/13/25 20:41 Hgb O2 Saturation 89.8 % (95-100) L 01/13/25 20:41 Carboxyhemoglobin 1.9 %THgb (0.4-20.1) 01/13/25 20:41 Methemoglobin 0.8 % (0.4-1.5) 01/13/25 20:41 Total Hemoglobin 16.4 g/dL (14-18) 01/13/25 20:41 Sodium 134.0 mmol/L (131-143) 01/13/25 20:41 Potassium 3.8 mmol/L (3.5-5.0) 01/13/25 20:41 Glucose 142.0 mg/dL (70-115) H 01/13/25 20:41 Ionized Calcium 1.1 mmol/L (1.1-1.4) 01/13/25 20:41 O2 Delivery Device Nc 01/13/25 20:41 O2 Liters/Min 2.0 % 01/13/25 20:41 Editorial Project Manager ID [email or web address] 01/13/25 20:41 Sodium 137 mmol/L (136-145) 01/18/25 04:39 Potassium 4.3 mmol/L (3.5-5.1) 01/18/25 04:39 Chloride 98 mmol/L (98-107) 01/18/25 04:39 Carbon Dioxide 32 mmol/L (22-29) H 01/18/25 04:39 Anion Gap 11.3 (5-19) 01/18/25 04:39 BUN 26 mg/dL (8-23) H 01/18/25 04:39 Creatinine 1.0 mg/dL (0.7-1.2) 01/18/25 04:39 GFR Calculation Not Reportable 01/18/25 04:39 Glucose 89 mg/dL (65-115) 01/18/25 04:39 Estimat Average Glucose 123 01/14/25 20:45 Hemoglobin A1c 5.9 % (4.0-6.0) 01/14/25 20:45 Calculated Osmolality 288 mOsm/kg (285-295) 01/18/25 04:39 Lactic Acid 4.3 mmol/L (0.5-2.2) H* 01/14/25 06:58 Lactic Acid (Sepsis) 4.7 mmol/L (0.5-2.2) H* 01/14/25 09:11 Lactate 2.3 mmol/L (0.5-2.2) H 01/15/25 04:28 Calcium 8.6 mg/dL (8.5-10.5) 01/18/25 04:39 Phosphorus 4.2 mg/dL (2.5-4.5) 01/17/25 04:46 Magnesium 2.3 mg/dL (1.7-2.3) 01/17/25 04:46 Iron 17 ug/dL (59-158) L 01/14/25 20:45 TIBC 186 mcg/dl 01/14/25 20:45 % Saturation 9.1 % (20-50) L 01/14/25 20:45 Unsat Iron Binding 169 ug/dL (112-347) 01/14/25 20:45 Total Bilirubin 1.0 mg/dL (0.15-1.2) 01/18/25 04:39 AST 22 U/L (0-40) 01/18/25 04:39 ALT 26 U/L (0-41) 01/18/25 04:39 Alkaline Phosphatase 47 U/L (40-130) 01/18/25 04:39 Troponin T Baseline 10 ng/L (0-15) 01/13/25 20:45 Troponin T 120 Minute 11.48 ng/L (0-15) 01/13/25 22:44 Delta Troponin T 1.48 ABS# (0-10) 01/13/25 22:44 Troponin T Hi Sens 6Hr 10.91 ng/L (0-15) 01/14/25 02:41 Troponin T Hi Sens 6Hr Delta 0.91 ng/L (0-12) 01/14/25 02:41 C-Reactive Protein 25.8 mg/L (0.0-4.9) H 01/13/25 20:45 NT-Pro-B Natriuret Pep 230 pg/mL (0-450) 01/13/25 20:45 Total Protein 6.0 g/dL (6.6-8.7) L 01/18/25 04:39 Albumin 3.4 g/dL (3.5-5.2) L 01/18/25 04:39 Globulin 2.6 g/dL (1.3-4.6) 01/18/25 04:39 Vitamin B12 310 pg/mL (232-1245) 01/14/25 20:45 Folate 2.7 ng/mL (4.5-32.2) L 01/15/25 04:28 Procalcitonin 0.10 ng/mL (0-0.5) 01/14/25 20:45 TSH 0.75 uIU/mL (0.27-4.20) 01/14/25 20:45 Urine Color Yellow (Yellow) 01/13/25 21:30 Urine Appearance Clear (CLEAR) 01/13/25 21:30 Urine pH 8 (5-7) A 01/13/25 21:30 Ur Specific [place] 1.010 (1.005-1.030) 01/13/25 21:30 Urine Protein Neg (Negative) 01/13/25 21:30 Urine Glucose (UA) Norm (Normal) 01/13/25 21: Urine Ketones Negative (Negative) 01/13/25 21: Urine Blood 2+ (Negative) H 01/13/25 21:30 Urine Nitrate Negative (Negative) 01/13/25 21:30 Urine Bilirubin Neg (Negative) 01/13/25 21: Urine Urobilinogen Norm mg/dL (Negative) 01/13/25 21:30 Ur Leukocyte Esterase Negative (Negative) 01/13/25 21:30 Urine RBC 6-10 /hpf (0-2) 01/13/25 21:30 Urine WBC 0-5 /hpf (0-5) 01/13/25 21:30 Ur Squamous Epith Cells 0-5 /hpf (0-5) 01/13/25 21:30 Amorphous Sediment Not Reportable 01/13/25 21:30 Urine Bacteria None seen /hpf (NONE) 01/13/25 21:30 Hyaline Casts 0-4 /lpf H 01/13/25 21:30 Nasal MRSA (PCR) Not detected (Negative) 01/14/25 13:19 Vancomycin Trough 6.3 ug/mL (10-15) L 01/16/25 04:25 Influenza A (PCR) Positive (Negative) 01/13/25 20:45 Influenza Type B (PCR) Negative (Negative) 01/13/25 20:45 RSV (PCR) Negative (Negative) 01/13/25 20:45 SARS-CoV-2 (PCR) Negative (Negative) 01/13/25 20:45 Vitals Last Vital Signs Temp 97.9 F 01/18/25 04:00 Pulse 79 01/18/25 08:50 Resp 16 01/18/25 08:50 BP 123/76 01/18/25 07:48 Pulse Ox 97 01/18/25 08:50 O2 Del Method Nasal Cannula 01/18/25 08:50 O2 Flow Rate 3 01/18/25 08:50 Discharge Plan Discharge Patient Disposition: Home Condition: Stable Prescriptions: New oseltamivir 75 mg Capsule 75 mg PO BID 2 Days Qty: 4 0RF dexamethasone 6 mg tablet 6 mg PO DAILY Qty: 7 0RF cefdinir 300 mg capsule 300 mg PO BID 7 Days Qty: 14 0RF azithromycin 250 mg tablet See Rx Instructions .ROUTE .COMPLEX Qty: 6 0RF Rx Instructions: For 500 mg dose pack: take 500 mg once daily for 3 days Continued aspirin 81 mg tablet,delayed release (DR/EC) 81 mg PO DAILY nitroglycerin [Nitrostat] 0.4 mg tablet, sublingual 0.4 mg SUBLINGUAL Q5M PRN (Reason: Chest Pain) Rx Instructions: do not exceed 3 doses per episode albuterol sulfate 90 mcg/actuation HFA aerosol inhaler 1 inh inhalation QID PRN (Reason: bronchospasm) 30 Days Qty: 8.5 0RF (DME) oxygen See Rx Instructions .Route .MEDSUPPLY Qty: 1 0RF Rx Instructions: concentrator, 02 tubing, nasal cannula, continous wear, humidifier fluticasone propion-salmeterol [Advair HFA] 230-21 mcg/actuation HFA aerosol inhaler 2 puff inhalation BID Qty: 12 12RF Rx Instructions: New script, has not received yet lisinopril 40 mg tablet 40 mg PO DAILY Qty: 90 3RF ezetimibe [Zetia] 10 mg tablet 10 mg PO DAILY Qty: 90 3RF clopidogrel 75 mg tablet 75 mg PO DAILY Qty: 90 3RF metoprolol tartrate 25 mg tablet 25 mg PO BID Qty: 180 3RF rosuvastatin 10 mg tablet 10 mg PO BEDTIME Discharge Orders: Discharge Order (Routine); Ordered 01/18/25 Ordered By: Gennaro Goetz Other Ambulatory Orders: DME: Oxygen (Order) Location: None Selected Ordered By: Gennaro Goetz Referrals: Carol Quinteros, HYDROSTATIC TESTER [Primary Care Provider] - (We have notified your physici an's clinic of the need for a follow-up appointment to be scheduled. If you have not heard from them within the next 2 business days, please call them directly. ) Ron Haney MD, MBBS, MPH [Referring] - 1 week (new diagnosis of COPD requiring 2L O2 We have notified your physician's clinic of the need for a follow-up appointment to be scheduled. If you have not heard from them within the next 2 business days, please call them directly. ) Discharge Diet: Advance as tolerated and Usual diet Discharge Activity: Resume usual activity and Increase activity as tolerated Patient Instructions: Azithromycin (By mouth), Dexamethasone (By mouth), Oseltamivir (By mouth), Cefdinir (By mouth), Influenza (GEN), Opioid Safety Plan of Treatment: 1. Take medications as prescribed. 2. Follow-up with your embroidery finisher and PCP. Discharge Attestations Time Spent in Discharge Care*: greater than 30 min Quality Metrics Clinical Quality Measures [ No reported AMI, CVA or VTE this stay] Coding Level of Care Code Acute Code for [facility] Diagnoses Severe sepsis A41.9; R65.20 Acute hypoxic respiratory failure J96.01 Influenza A J10.1 COPD exacerbation J44.1 Lactic acidosis E87.20
== END 2025-01-18 12:35 | disposition home or self-care (01) | DRG 871 ==
LOC: ER 23:58 → MEDSURG 01-14 00:26
PROVIDERS: Student in an Organized Health Care Education/Training Program; Admitting Provider Internal Medicine; Emergency Provider Emergency Medicine; Family Provider Nurse Practitioner Family; PCP Registered Nurse; Visit Provider Internal Medicine
DX: A41.9 Sepsis, unspecified organism (principal); J15.9 Unspecified bacterial pneumonia; J96.01 Acute respiratory failure with hypoxia; J44.1 Chronic obstructive pulmonary disease with (acute) exacerbation; J44.0 Chronic obstructive pulmonary disease with (acute) lower respiratory infection; E87.20 Acidosis, unspecified; R65.20 Severe sepsis without septic shock; J10.1 Influenza due to other identified influenza virus with other respiratory manifestations; I25.10 Atherosclerotic heart disease of native coronary artery without angina pectoris; I25.2 Old myocardial infarction; E78.5 Hyperlipidemia, unspecified; I10 Essential (primary) hypertension; F17.210 Nicotine dependence, cigarettes, uncomplicated; Z95.5 Presence of coronary angioplasty implant and graft; Z85.828 Personal history of other malignant neoplasm of skin; Z79.82 Long term (current) use of aspirin; Z79.02 Long term (current) use of antithrombotics/antiplatelets
CPT/HCPCS: 36415; 36600; 71045; 71275; 80051; 80053; 80202; 81001; 82330; 82607; 82746; 82805; 83036; 83540; 83550; 83605; 83735; 83880; 84100; 84145; 84443; 84484; 85025; 85378; 86140; 87040; 87070; 87106; 87205; 87637; 93005; 93306; 94640; 94760; 96365; 96372; 99285; J0456; J0692; J1100; J1650; J1940; J2543; J2919; J3370; J7030; J7050; J7613; J7614; J7626; J7644; J9999

== ENCOUNTER → 2025-01-31 13:51 | Outpatient (BNVA) | payer MEDICARE, SELFPAY | PROVIDERS: Family Provider Nurse Practitioner Family; PCP Registered Nurse; Visit Provider Nurse Practitioner Family | DX: S00.501A Unspecified superficial injury of lip, initial encounter (principal); L57.8 Other skin changes due to chronic exposure to nonionizing radiation; X32.XXXA Exposure to sunlight, initial encounter; L57.0 Actinic keratosis; L81.4 Other melanin hyperpigmentation; Z08 Encounter for follow-up examination after completed treatment for malignant neoplasm; Z85.828 Personal history of other malignant neoplasm of skin; X58.XXXA Exposure to other specified factors, initial encounter | CPT/HCPCS: 17000; 99213 ==

== ENCOUNTER → 2025-03-01 11:53 | Outpatient (BNVA) | payer MEDICARE, SELFPAY | PROVIDERS: Family Provider Nurse Practitioner Family; PCP Registered Nurse; Visit Provider Student in an Organized Health Care Education/Training Program | DX: J44.9 Chronic obstructive pulmonary disease, unspecified (principal); B44.89 Other forms of aspergillosis | CPT/HCPCS: 99205 ==

== ENCOUNTER → 2025-06-02 13:05 | Outpatient (BNVA) | payer MEDICARE, SELFPAY | PROVIDERS: Family Provider Nurse Practitioner Family; PCP Registered Nurse; Visit Provider Nurse Practitioner Family | DX: L72.0 Epidermal cyst (principal); L82.1 Other seborrheic keratosis; L81.4 Other melanin hyperpigmentation; D22.39 Melanocytic nevi of other parts of face; D22.72 Melanocytic nevi of left lower limb, including hip; L81.7 Pigmented purpuric dermatosis; Z08 Encounter for follow-up examination after completed treatment for malignant neoplasm; Z85.828 Personal history of other malignant neoplasm of skin; D48.5 Neoplasm of uncertain behavior of skin | CPT/HCPCS: 17000; 99213 ==

== ENCOUNTER → 2025-06-15 14:07 | Outpatient (BNVA) | payer MEDICARE, SELFPAY | PROVIDERS: Family Provider Nurse Practitioner Family; PCP Registered Nurse; Visit Provider Internal Medicine Cardiovascular Disease | DX: I25.10 Atherosclerotic heart disease of native coronary artery without angina pectoris (principal); E78.5 Hyperlipidemia, unspecified; I10 Essential (primary) hypertension; I95.1 Orthostatic hypotension; Z79.02 Long term (current) use of antithrombotics/antiplatelets; Z79.82 Long term (current) use of aspirin; Z87.891 Personal history of nicotine dependence | CPT/HCPCS: 99214 ==

== ENCOUNTER → 2025-06-23 11:27 | Outpatient (BNVA) | payer MEDICARE, SELFPAY | PROVIDERS: Family Provider Nurse Practitioner Family; PCP Registered Nurse; Visit Provider Internal Medicine | DX: J44.9 Chronic obstructive pulmonary disease, unspecified (principal); R91.8 Other nonspecific abnormal finding of lung field; Z87.891 Personal history of nicotine dependence | CPT/HCPCS: 99204 ==

== ENCOUNTER → 2025-06-29 09:20 | Outpatient (BNVA) | payer MEDICARE, SELFPAY | PROVIDERS: Family Provider Nurse Practitioner Family; PCP Registered Nurse; Visit Provider Internal Medicine | DX: J44.9 Chronic obstructive pulmonary disease, unspecified (principal) | CPT/HCPCS: 85025 ==

== ENCOUNTER 2025-07-15 13:24 | Outpatient (CLI) | payer MEDICARE, SELFPAY ==
--- NOTE | 2025-07-15 13:30 | CTR_ITS ---
PROCEDURE INFORMATION: Exam: CT Chest Without Contrast; Diagnostic Exam date and time: 07/15/2025 1:36 PM Age: 80 years old Clinical indication: Abnormal findings; Abnormal radiologic exam of lung or chest; Additional info: R91.8 - other nonspecific abnormal finding of lung field TECHNIQUE: Imaging protocol: Diagnostic computed tomography of the chest without contrast. Radiation optimization: All CT scans at this facility use at least one of these dose optimization techniques: automated exposure control; mA and/or kV adjustment per patient size (includes targeted exams where dose is matched to clinical indication); or iterative reconstruction. COMPARISON: CT angio chest PE protcl [id number] 01/13/2025 9:56 PM RADIATION DOSE METRICS: Total DLP (mGy-cm): 326.21 FINDINGS: Lungs: Since the prior CT the inflammatory densities within the right middle lobe and posteroinferior lower lobes has resolved. There remains moderate architectural changes of centrilobular emphysema. Calcified nodule is present within the lingula, stable. Pleural spaces: Unremarkable. No pneumothorax. No pleural effusion. Heart: Unremarkable. No cardiomegaly. No pericardial effusion. Coronary arteries: There is prominent coronary artery calcification dominating within the LAD and left circumflex. Lymph nodes: Unremarkable. No enlarged lymph nodes. Vasculature: Minimal atherosclerotic calcification is seen within the arch of the normal caliber thoracic aorta and intermittently seen throughout the descending thoracic aorta. Bones/joints: There is no acute osseous abnormality appreciated. Soft tissues: Unremarkable. CT/CT chest wo con [id number] IMPRESSION: 1. Resolution of basilar inflammatory changes since prior exam. 2. Centrilobular emphysema. 3. Prominent coronary artery atherosclerotic calcification.
== END 2025-07-15 13:25 | disposition home or self-care (01) ==
LOC: RAD 13:27
PROVIDERS: Family Provider Nurse Practitioner Family; PCP Registered Nurse; Visit Provider Registered Nurse
DX: R91.8 Other nonspecific abnormal finding of lung field (principal); J43.2 Centrilobular emphysema; R91.1 Solitary pulmonary nodule
CPT/HCPCS: 71250

== ENCOUNTER → 2025-08-30 13:46 | Outpatient (BNVA) | payer MEDICARE, SELFPAY | PROVIDERS: Family Provider Nurse Practitioner Family; PCP Registered Nurse; Visit Provider Internal Medicine | DX: J44.9 Chronic obstructive pulmonary disease, unspecified (principal); Z87.01 Personal history of pneumonia (recurrent); Z87.891 Personal history of nicotine dependence; J44.1 Chronic obstructive pulmonary disease with (acute) exacerbation | CPT/HCPCS: 99214; Q3014 ==

== ENCOUNTER 2025-10-10 08:48 | Outpatient (CLI) | payer MEDICARE, SELFPAY | END 2025-10-10 08:49 | disposition home or self-care (01) | PROVIDERS: Family Provider Nurse Practitioner Family; PCP Registered Nurse; Visit Provider Internal Medicine | DX: J44.1 Chronic obstructive pulmonary disease with (acute) exacerbation (principal) | CPT/HCPCS: 94618 ==